=== PATIENT | male | born 1990 | race Caucasian/White ===

== ENCOUNTER 2019-01-01 13:48 | Emergency (ER) | payer MEDICAID, SELFPAY ==
[2019-01-01] VITALS (10 sets, daily range): BP systolic 135–150; BP diastolic 97–103; PULSE 112–124; RESP 17–20; TEMP 36.9; O2SAT 95–96; BMI 42.5
--- NOTE | 2019-01-01 14:04 | RAD_ITS ---
STUDY: X-RAY CHEST REASON FOR EXAM: Male, 28 years old. Chest pain. TECHNIQUE: Single AP portable view of the chest. COMPARISON: Comparison is made with prior study dated February 24, 2017. FINDINGS: Mild degree of vascular congestion. A stimulator device is seen overlying the lateral aspect of the left hemithorax. There is no demonstrated pleural abnormality. Normal size heart. Normal mediastinum and meenakshi. Normal visualized pulmonary arteries. Normal visualized aortic arch and descending thoracic aorta. Normal visualized thoracic spine. Normal visualized ribs, clavicles, and shoulders. There is no demonstrated abnormality of the visualized soft tissue structures of the upper abdomen. RAD/Chest 1 View (Portable) IMPRESSION: Mild degree of vascular congestion. Electronically Signed: Stuart Ontiveros, at 14:47 EDT , Service support ,
--- NOTE | 2019-01-01 14:04 | EKG12_ITS ---
Test Reason : MENTAL HEALTH Blood Pressure : / mmHG Vent. Rate : 115 BPM Atrial Rate : 115 BPM P-R Int : 168 ms QRS Dur : 082 ms QT Int : 312 ms P-R-T Axes : 055 071 042 degrees QTc Int : 431 ms Sinus tachycardia Otherwise normal ECG Confirmed by IVETTE SANCHES, ANGELITO ([id number]), editor sound ANA MARIA SANTIAGO ([id number]) on 01/05/2019 1:11:14 PM Referred By: SABRINA Confirmed By:ANGELITO STEELE MD
[2019-01-01 14:45] LABS: Absolute Lymphocyte Count 2.44 X10^3/ul (0.83-4.51); Absolute Neutrophil Count 5.7 X10^3/uL (2.0-7.7); Basophil# 0.04 X10^3/uL; Basophil% 0.5 % (0-1); Eosinophil# 0.28 X10^3/uL; Eosinophils% 3.2 % (0-5); Hematocrit 48.9 % (40-54); Hemoglobin 16.9 g/dl (13.0-16.5); Lymphocyte # 2.44 X10^3/ul (4.0); Lymphocyte % 27.7 % (19-41); Mean Corp Hgb Conc 34.6 g/gl (32-36); Mean Corpuscular Hgb 30.1 pg (27.0-32.0); Mean Corpuscular Volume 87.2 fL (80-94); Mean Platelet Vol. 11.4 fl (6.2-12.0); Monocyte# 0.35 X10^3/uL; Neutrophil # 5.69 X10^3/uL (2.7-7.7); Neutrophil % 64.5 % (47-70); Platelet Count 233 K/mm3 (150-450); RBC Distribution Width CV 12.9 % (11.6-14.6); Red Blood Count 5.61 M/mm3 (4.6-6.2); White Blood Count 8.8 K/mm3 (4.4-11.0)
[2019-01-01 14:49] LABS: POSITIVE COUNT NO; POSITIVE DIFFERENTIAL NO; POSITIVE MORPHOLOGY NO
[2019-01-01 15:03] LABS: Amphetamine Urine VISTA NEGATIVE (<1000 ng/mL); Barbiturate Urine VISTA NEGATIVE (< 200 ng/mL); Benzodiazepine Urine VISTA NEGATIVE (< 200 ng/mL); Cocaine Urine VISTA NEGATIVE (< 300 ng/mL); Ecstacy Urine VISTA NEGATIVE (< 500 ng/mL); Methadone Urine VISTA NEGATIVE (< 300 ng/mL); PCP Urine VISTA NEGATIVE (< 25 ng/mL); THC Urine VISTA NEGATIVE (< 50 ng/mL); Vista UDS pH Range 5
[2019-01-01 15:05] LABS: ALB/GLOB Ratio 0.8 RATIO (0.9-2.4); AST(SGOT) 14 U/L (15-37); Alanine Aminotransfer ALT/SGPT 43 U/L (16-61); Albumin, Serum 3.7 g/dL (3.2-5.0); Alkaline Phosphatase 119 U/L (45-117); Anion Gap 9 (5-15); BUN 10 mg/dL (7-18); BUN/Creat Ratio 11.8 RATIO (10-20); Chloride 111 mmol/L (98-107); Creatinine, Serum 0.85 mg/dL (0.70-1.30); EST Glomerular Filtration Rate 115 mL/min (>60); Est Glom Filt Rate - Afr Amer 139 mL/min (>60); Estimated Creatinine Clearance 127.41 ml/min; Globulin 4.4 g/dL (2.2-4.2); Glucose 111 mg/dL (74-106); Potassium 3.2 mmol/L (3.5-5.1); Protein, Total 8.1 g/dL (6.4-8.2); Sodium Level 142 mmol/L (136-145)
--- NOTE | 2019-01-01 15:28 | ED.VISSUMM ---
- ER Visit Summary Date of Service: 01/01/19 Chief Complaint: Paranoia History of Present Illness: The patient is a 28 M who has a long-standing seizure and schizophrenic history. Patient dad accompanies him to the emergency department. They were assessed by crisis in the outpatient setting. They were advised to come to the emergency department. Approximately 1 month ago the patient had his psychiatric medications increased. This was not tolerated well and eventually were weaned off and changed. However the patient has not achieved his baseline mental health status. Dad notes increased paranoia which the patient agrees with. Patient has auditory hallucinations of 2 voices telling him very bad things. He states that he has not have any suicidal ideation but has been aggressive and irritable towards other people. Physical Examination: Afebrile vital signs stable Gen: Well-nourished well-developed Head: Normocephalic atraumatic Eyes: Perrl EOMI ENT: TMs clear no rhinorrhea moist mucous membranes Neck: Supple no lymphadenopathy no JVD nontender CVS: Regular rate rhythm no murmurs normal S1-S2 Respiratory: No distress clear to auscultation bilaterally chest nontender Abdomen: Soft nontender nondistended normal bowel sounds no masses Back: Nontender Extremity: Nontender no edema Skin: Normal color no rash Neuro: alert orientated ?3 CN II-XII intact normal strength sensation reflexes gait cerebellar Psych: Blunted affect. Patient appears internally stimulated. He admits to auditory hallucinations. He denies suicidal ideation. Test Results: Psychiatric screening labs were obtained which showed a potassium 3.2. Emergency Department Course and Treatment: Patient received oral potassium. Patient will be assessed by crisis and is cleared for psychiatric evaluation. Impression: 1. Decompensated schizophrenia 2. Hypokalemia This note was generated with [employer] dictation software. It may contain incorrect words, spelling, and punctuation that were not noted in review of the chart prior to signing ED Disposition - Plan for ED Patient: Referrals: Gus Fletcher MD [Primary Care Provider] -
--- NOTE | 2019-01-01 15:32 | ED.RN ---
TALKED TO DUSTIN AT THE [facility] AND HE IS WORKING ON THE SITUATION WITH THIS PATIENT FROM THE OFFICE. SOMEONE WILL BE OVER SHORTLY. BU NO DEFINITE ETA.
--- NOTE | 2019-01-01 21:54 | NURSING ---
TERE PHONE NUMBER [phone]
[2019-01-02] VITALS (8 sets, daily range): BP systolic 121–129; BP diastolic 83–92; PULSE 80–94; RESP 14–18; TEMP 36.6; O2SAT 95–98
--- NOTE | 2019-01-02 00:03 | NURSING ---
IGNACIO FROM CRISIS CALLED SAYING PATIENT WAS DECLINED FROM [facility] AND WILL NOW PUT IN A REFERAL TO [facility].
[2019-01-02] MEDS: MELATONIN 10 MG TABLET PO (00:21)
--- NOTE | 2019-01-02 01:09 | ED.RN ---
PT STATES I HAVE BEEN OFF PROBATION A YEAR OR TWO
[2019-01-02 01:19] LABS: Red Blood Cells-Urine 0 SEEN /hpf (0-5)
[2019-01-02 01:33] LABS: Potassium 3.8 mmol/L (3.5-5.1)
[2019-01-02 01:44] LABS: AST(SGOT) 20 U/L (15-37); Alanine Aminotransfer ALT/SGPT 45 U/L (16-61); Albumin, Serum 3.5 g/dL (3.2-5.0); Alkaline Phosphatase 109 U/L (45-117); Bilirubin, Direct 0.11 mg/dL (0.00-0.30); Globulin 3.9 g/dL (2.2-4.2); Protein, Total 7.4 g/dL (6.4-8.2)
[2019-01-02 02:20] LABS: Color, Urine Yellow (Yellow); Glucose, Dipstick Normal (Normal); Ketone-Dipstick Negative (Negative); Leukocyte Esterase-Dipstick 25 /ul (Negative); Nitrite-Dipstick Negative (Negative); Occult Blood-Urine Negative /ul (Negative); Protein-Dipstick 15 mg/dl (Negative); Urine Bilirubin Dipstick Negative (Negative); Urine Clarity Cloudy (Clear); Urine Urobilinogen Normal (Normal)
[2019-01-02 02:25] LABS: Amorphous Sediment 1+; Bacteria 2+ /hpf (None Seen); Mucous, Urine 3+ /hpf (<or=2+); White Blood Cells 0-5 SEEN /hpf (0-5)
[2019-01-02 02:26] LABS: Squamous Epithelial Cells - UA 0-5 SEEN /hpf (0-5)
[2019-01-02] MEDS: Pantoprazole Sodium 20 MG Tablet PO (06:49)
[2019-01-02] MEDS: Zonisamide 50 MG Capsule 200 MG PO (06:50)
[2019-01-02] MEDS: Lacosamide 100 MG Tablet 300 MG PO (06:51)
== END 2019-01-02 09:28 ==
PROVIDERS: Emergency Medicine; Emergency Provider Emergency Medicine; Family Provider Family Medicine; PCP Family Medicine
DX: F20.9 Schizophrenia, unspecified (principal); E87.6 Hypokalemia; G40.909 Epilepsy, unspecified, not intractable, without status epilepticus; Z79.899 Other long term (current) drug therapy; F17.200 Nicotine dependence, unspecified, uncomplicated
CPT/HCPCS: 71045; 80053; 80076; 80307; 80320; 81001; 84132; 84484; 85025; 93005; 99285; G0480

== ENCOUNTER 2019-02-24 13:19 | Emergency (ER) | payer MEDICAID, SELFPAY ==
[2019-01-01 13:49] VITALS: BMI 42.5
[2019-02-24 13:20] VITALS: BP 122/81; PULSE 124; RESP 16; TEMP 36.3; O2SAT 94; BMI 41.8
[2019-02-24 13:33] VITALS: BP 139/94; PULSE 108; RESP 16; O2SAT 97
--- NOTE | 2019-02-24 13:34 | CT_ITS ---
STUDY: CT BRAIN WITHOUT CONTRAST REASON FOR EXAM: Male, 29 years old. Seizure, left-sided numbness RADIATION DOSAGE (If Supplied By Facility): CTDIvol = ( 44.99 ) mGy, DLP = ( 812.98 ) mGycm TECHNIQUE: Transaxial CT imaging of the brain was performed without administration of intravenous contrast material. Individualized dose optimization techniques were used for this CT. COMPARISON: 2015 FINDINGS: Stable appearing right frontal craniotomy defect with postoperative changes in the right cerebral hemisphere. There is extensive encephalomalacia and negative mass effect with slight midline shift from left to right due to the extensive encephalomalacia in the right cerebral hemisphere. Previously noted areas of hemorrhage within the right cerebral hemisphere and pneumocephalus have resolved since the previous study. No acute hemorrhage noted on today's examination. CT/Brain/Head without Contrast IMPRESSION: Significant postsurgical changes noted in the right cranium and right cerebral hemisphere with encephalomalacia and negative mass effect. No acute hemorrhage or acute finding noted. Electronically Signed: Brent Emerson MD at 14:21 EDT , Service support ,
[2019-02-24 14:03] LABS: Amphetamine Urine VISTA NEGATIVE (<1000 ng/mL); Barbiturate Urine VISTA NEGATIVE (< 200 ng/mL); Benzodiazepine Urine VISTA NEGATIVE (< 200 ng/mL); Cocaine Urine VISTA NEGATIVE (< 300 ng/mL); Ecstacy Urine VISTA NEGATIVE (< 500 ng/mL); Methadone Urine VISTA NEGATIVE (< 300 ng/mL); PCP Urine VISTA NEGATIVE (< 25 ng/mL); THC Urine VISTA NEGATIVE (< 50 ng/mL); Vista UDS pH Range 7
[2019-02-24 14:07] LABS: Absolute Lymphocyte Count 2.41 X10^3/uL (0.83-4.51); Absolute Neutrophil Count 8.6 X10^3/uL (2.0-7.7); Basophil# 0.05 X10^3/uL; Basophil% 0.4 % (0-1); Eosinophil# 0.29 X10^3/uL; Eosinophils% 2.4 % (0-5); Hematocrit 49.9 % (40-54); Hemoglobin 17.5 g/dL (13.0-16.5); Lymphocyte # 2.41 X10^3/ul (4.0); Mean Corp Hgb Conc 35.1 g/dL (32-36); Mean Corpuscular Hgb 31.5 pg (27.0-32.0); Mean Corpuscular Volume 89.7 fL (80-94); Mean Platelet Vol. 11.4 fl (6.2-12.0); Monocyte# 0.67 X10^3/uL; Monocyte% 5.6 % (0-10); NRBC Flagged by Analyzer 0 % (0-5); Neutrophil # 8.59 X10^3/uL (2.7-7.7); Neutrophil % 71.3 % (47-70); Platelet Count 194 K/mm3 (150-450); RBC Distribution Width CV 13.5 % (11.6-14.6); RBC Distribution Width SD 44.2 fl (35.1-43.9); Red Blood Count 5.56 M/mm3 (4.6-6.2); White Blood Count 12.1 K/mm3 (4.4-11.0)
[2019-02-24 14:21] LABS: Anion Gap 7 (5-15); BUN 11 mg/dL (7-18); Calcium,Total 9.1 mg/dL (8.5-10.1); Chloride 107 mmol/L (98-107); Creatinine, Serum 0.84 mg/dL (0.70-1.30); EST Glomerular Filtration Rate 116 mL/min (>60); Est Glom Filt Rate - Afr Amer 140 mL/min (>60); Glucose 102 mg/dL (74-106); Potassium 3.6 mmol/L (3.5-5.1); Sodium Level 138 mmol/L (136-145)
[2019-02-24 14:27] LABS: Alcohol, Blood (Medical)-Serum < 3.0 mg/dL
--- NOTE | 2019-02-24 15:18 | NURSING ---
PAGED DR DEVON SEPULVEDA. TALKED TO [place] OFFICE NUMBER IS [phone]
--- NOTE | 2019-02-24 15:27 | ED.VISSUMM ---
- ER Visit Summary Date of Service: 02/24/19 Chief Complaint: Seizure, left-sided numbness History of Present Illness: The patient is a 29 M who complains of having a seizure a couple of days ago and now has numbness on his left hand side. He states he had a full tonic-clonic seizure a couple of days ago. After this, he had disturbances of sensation on the left-hand side only. He denies having any weakness other than his baseline. He has had intermittent headaches as well. He denies any nausea or vomiting. He has been compliant with his antiseizure medications. After seeing his CAT scan, I can see that he has had a craniectomy previously. Physical Examination: Vital signs reviewed. HEENT exam unremarkable. Heart is regular rate and rhythm without murmurs. Lungs are clear to auscultation. Abdomen is soft and nontender. Extremities reveal no edema. Skin exam normal. Neurologic exam shows some numbness and decreased sensation on the left-hand side of his face, arm and leg. NIH is 1 Test Results: Laboratory studies are unremarkable including tox and alcohol. CAT scan of the head reveals postsurgical changes with a large amount of encephalomalacia. This is unchanged from his previous CAT scan. Emergency Department Course and Treatment: I talked with the patient's neurologist at the [facility], Dr. Gtz. She believes this is likely a prolonged postictal. Since he has not had a seizure in over 3 years. She would recommend a couple more days of observation at home. If his symptoms are not better by the end of this week she will order an outpatient MRI. Patient is comfortable with this plan will continue his home medications Treatment Plan: [] Disposition: Discharge Impression: Left-sided numbness, seizure This note was generated with [employer] software. It may contain incorrect words, spelling, and punctuation that were not noted in review of the chart prior to signing ED Disposition - Plan for ED Patient: Referrals: Gus Fletcher MD [Primary Care Provider] -
--- NOTE | 2019-02-24 15:29 | NURSING ---
CALLED DR RANDHAWA'S OFFICE. [phone] CALLED BACK
--- NOTE | 2019-02-24 15:44 | ED.DEP ---
ED Disposition - Plan for ED Patient: Disposition: Home or Assisted Living Instructions: SEIZURE, Recurrent [Adult] Referrals: Gus Fletcher MD [Primary Care Provider] -
[2019-02-24 15:54] VITALS: BP 148/69; PULSE 72; RESP 16; O2SAT 96
[2019-02-24 15:58] VITALS: BP 143/80; PULSE 93; RESP 15; O2SAT 99
--- NOTE | 2019-02-24 15:59 | ED.RN ---
THIS NURSE REVIEWED D/C INSTRUCTIONS WITH PT AND VISITOR. PT VERBALIZED UNDERSTANDING OF INSTRUCTIONS. IV D/C. IV CATHETER INTACT. PT TOLERATED WELL. PT DENIES FURTHER NEEDS OR QUESTIONS AT THIS TIME.
== END 2019-02-24 16:00 | disposition home or self-care (01) ==
PROVIDERS: Emergency Provider Emergency Medicine; Family Provider Family Medicine; PCP Family Medicine
DX: G40.909 Epilepsy, unspecified, not intractable, without status epilepticus (principal); R20.0 Anesthesia of skin; K21.9 Gastro-esophageal reflux disease without esophagitis; Z79.899 Other long term (current) drug therapy; Z72.0 Tobacco use
CPT/HCPCS: 70450; 80048; 80307; 80320; 85025; 99283; A4216; G0480

== ENCOUNTER 2019-03-18 12:29 | Emergency (ER) | payer MEDICAID, SELFPAY ==
[2019-03-18 12:31] VITALS: BP 141/80; PULSE 120; RESP 16; TEMP 36.6; O2SAT 95; BMI 40.6
[2019-03-18 13:18] LABS: Bacteria 0 SEEN /hpf (None Seen); Mucous, Urine 0 SEEN /hpf (<or=2+); Red Blood Cells-Urine 0 SEEN /hpf (0-5); Squamous Epithelial Cells - UA 0 SEEN /hpf (0-5); White Blood Cells 0 SEEN /hpf (0-5)
[2019-03-18 13:20] LABS: Absolute Lymphocyte Count 1.92 X10^3/uL (0.83-4.51); Absolute Neutrophil Count 8.5 X10^3/uL (2.0-7.7); Basophil# 0.06 X10^3/uL; Basophil% 0.5 % (0-1); Eosinophil# 0.25 X10^3/uL; Eosinophils% 2.2 % (0-5); Hematocrit 50.6 % (40-54); Hemoglobin 17.4 g/dL (13.0-16.5); Lymphocyte # 1.92 X10^3/ul (4.0); Lymphocyte % 16.9 % (19-41); Mean Corp Hgb Conc 34.4 g/dL (32-36); Mean Corpuscular Hgb 31.2 pg (27.0-32.0); Mean Corpuscular Volume 90.8 fL (80-94); Mean Platelet Vol. 11.5 fl (6.2-12.0); Monocyte# 0.55 X10^3/uL; Monocyte% 4.8 % (0-10); NRBC Flagged by Analyzer 0 % (0-5); Neutrophil # 8.53 X10^3/uL (2.7-7.7); Neutrophil % 75.2 % (47-70); Platelet Count 200 K/mm3 (150-450); RBC Distribution Width CV 13.3 % (11.6-14.6); RBC Distribution Width SD 44.8 fl (35.1-43.9); Red Blood Count 5.57 M/mm3 (4.6-6.2); White Blood Count 11.4 K/mm3 (4.4-11.0)
[2019-03-18 13:22] LABS: Color, Urine Yellow (Yellow); Glucose, Dipstick Normal (Normal); Ketone-Dipstick Negative (Negative); Leukocyte Esterase-Dipstick Negative /ul (Negative); Nitrite-Dipstick Negative (Negative); Occult Blood-Urine Negative /ul (Negative); Protein-Dipstick Negative (Negative); Urine Bilirubin Dipstick Negative (Negative); Urine Clarity Clear (Clear); Urine Urobilinogen Normal (Normal); Urine pH 6.5 (5.0 - 8.0)
[2019-03-18 13:33] LABS: Anion Gap 6 (5-15); BUN 7 mg/dL (7-18); Calcium,Total 8.9 mg/dL (8.5-10.1); Chloride 107 mmol/L (98-107); Creatinine, Serum 0.88 mg/dL (0.70-1.30); EST Glomerular Filtration Rate 111 mL/min (>60); Est Glom Filt Rate - Afr Amer 134 mL/min (>60); Estimated Creatinine Clearance 126.09 ml/min; Glucose 92 mg/dL (74-106); Potassium 3.6 mmol/L (3.5-5.1); Sodium Level 140 mmol/L (136-145)
--- NOTE | 2019-03-18 14:27 | ED.VISSUMM ---
- ER Visit Summary Date of Service: 03/18/19 Chief Complaint: Kidneys hurt History of Present Illness: The patient is a 29 M with bilateral flank pain. Symptoms have been going on for 3 weeks. He also reports occasional burning with urination and hesitancy. Denies any fevers or other associated symptoms. He has occasional tailbone pain but denies any history of prostate problems. Physical Examination: Afebrile and vital signs unremarkable except heart rate 120. Patient appears in no acute distress. Cardiac exam is regular. Lungs are clear. Abdomen is soft and nontender. Back is nontender. Skin appears normal. Test Results: White count 11.4 and hemoglobin 17.4. Chemistry panel normal. Urinalysis normal. Cultures pending. Emergency Department Course and Treatment: Patient has bilateral back pain. Possible UTI. His symptoms are not consistent with kidney stone. His work-up however was unremarkable. No bleeding. No sign of infection. Normal kidney function. Patient may have myofascial pain. He will use [id number] remedies and follow-up with his doctor. Return for any new or worsening issues. Treatment Plan: As above Disposition: Discharge Impression: 1. Bilateral flank pain This note was generated with [employer] dictation software. It may contain incorrect words, spelling, and punctuation that were not noted in review of the chart prior to signing ED Disposition - Plan for ED Patient: Referrals: Gus Fletcher MD [Primary Care Provider] -
--- NOTE | 2019-03-18 14:29 | ED.DEP ---
ED Disposition - Plan for ED Patient: Instructions: FLANK PAIN, Uncertain Cause Referrals: Gus Fletcher MD [Primary Care Provider] -
[2019-03-18 14:37] VITALS: BP 127/92; PULSE 107; RESP 17; O2SAT 96
== END 2019-03-18 14:41 | disposition home or self-care (01) ==
LOC: ED 13:08
PROVIDERS: Emergency Provider Emergency Medicine; Family Provider Family Medicine; PCP Family Medicine
DX: R10.9 Unspecified abdominal pain (principal); M54.9 Dorsalgia, unspecified; R30.0 Dysuria; R39.11 Hesitancy of micturition; G40.909 Epilepsy, unspecified, not intractable, without status epilepticus; Z79.899 Other long term (current) drug therapy; Z72.0 Tobacco use
CPT/HCPCS: 80048; 81001; 85025; 87086; 99283; A4216

== ENCOUNTER 2019-05-10 07:37 | Emergency (ER) | payer MEDICAID, SELFPAY ==
[2019-05-10 07:38] VITALS: BP 136/91; PULSE 108; RESP 18; TEMP 36.6; O2SAT 97; BMI 43.3
--- NOTE | 2019-05-10 08:02 | ED.VIS.GEN ---
History of Present Illness Chief Complaint: Wound Check Informant: Patient, Family Onset: Month(s) Current Severity: Mild Narrative: The patient presents with the father he is complaining of pain involving the upper right tooth directly next to the central incisor this tooth has had prior dental work including it has a He has some discomfort related to this tooth that appears to be radiating to the palate maxillary area for 1 month there is been no fever no cough no drainage he is scheduled to see a dentist in a few days the father brought him to the emergency department for evaluation as he was concerned that something developed on the gum adjacent to this tooth Past Medical History - Allergies and Home Meds Allergies/Adverse Reactions: Allergies No Known Allergies Allergy (Verified 05/10/19 07:40) Primary Care Physician: Gus Fletcher MD [Primary Care Provider] - Past Medical History: - - Includes as above he does smoke Smoking Status: Heavy Smoker (>10/day) Review of Systems General: Denies: Chills, Fever, Sweats Eyes: Denies: Visual changes - bilaterally, Diplopia ENT: Denies: Rhinorrhea, Sore throat Cardiovascular: Denies: Chest pain, Palpitations Respiratory: Denies: Dyspnea, Cough, Dyspnea on exertion Gastrointestinal: Denies: Abdominal pain, Nausea, Vomiting, Diarrhea, Melena, Hematochezia Genitourinary: Denies: Dysuria, Hematuria, Frequency Musculoskeletal: Denies: Back pain, Extremity Pain Skin: Denies: Rash, Wounds Neurological: Denies: Headache, Weakness, Numbness Physical Exam Vital Signs/Narrative: Vital Signs Temp Pulse Resp BP Pulse Ox 05/10/19 07:38 98 F 108 H 18 136/91 H 97 General: Well nourished, Well developed, No Acute Distress Head: Normocephalic, Atraumatic Eyes: Perrl, EOMI ENT: Moist mucous membranes, No rhinorrhea, - - Very minimal pain with palpation of this tooth to tooth is in good position the palate the maxilla of the gumline the floor the mouth the tongue oral cavity and general completely unremarkable the father is concerned that there is some type of discoloration to the gum adjacent to this tooth and there is certainly could be something very tiny but there is nothing remarkable there is no blistering there is no skin breakdown, the father is concerned this could represent some type of an oral cancer Neck: Supple, Nontender Cardiovascular: Regular rate, Regular rhythm, No murmurs Respiratory: No distress, CTA bilaterally, Chest nontender Abdomen: Soft, Nontender, Nondistended, Normal bowel sounds Back: Nontender, Normal Inspection Extremities: Nontender, No edema Skin: Normal color, No rash Neurological: Alert, Oriented x3, Cranial nerves II-XII grossly intact, Normal Strength, Normal Sensation Psychological: Normal affect, Normal Mood Diagnostic/Tx/Re-eval - Medical Decision Making I have explained all of the above to the father I explained his concerns of the oral cancer are certainly are valid given the long history of smoking, this cannot be further evaluated through the emergency department at this time there does not appear to be anything acute or life-threatening he is scheduled to see his dentist in a day or 2 he will keep that appointment to be evaluated for further life-threatening conditions, will be started on Pen-Vee K in case this is not some type of occult dental infection and to follow-up with all the outpatient providers for further management of all the above Home stable Impression final Dental pain ED Disposition - Plan for ED Patient: Diagnosis: Pain, dental Instructions: Dental Pain Prescriptions: Penicillin Vk [Pen-Vee K 250MG] 500 mg PO 4X/DAY #40 tab Prescription Printed Referrals: Gus Fletcher MD [Primary Care Provider] -
== END 2019-05-10 08:25 | disposition home or self-care (01) ==
PROVIDERS: Emergency Provider Emergency Medicine; Family Provider Family Medicine; PCP Family Medicine
DX: K08.89 Other specified disorders of teeth and supporting structures (principal); F17.200 Nicotine dependence, unspecified, uncomplicated
CPT/HCPCS: 99281

== ENCOUNTER 2020-12-20 13:59 | Emergency (ER) | payer MEDICAID, SELFPAY ==
[2020-12-20 14:00] VITALS: BP 124/101; PULSE 131; RESP 15; TEMP 36.2; O2SAT 96; BMI 42.5
--- NOTE | 2020-12-20 14:19 | EKG12_ITS ---
Test Reason : [facility] [place] Blood Pressure : / mmHG Vent. Rate : 121 BPM Atrial Rate : 121 BPM P-R Int : 156 ms QRS Dur : 082 ms QT Int : 296 ms P-R-T Axes : 059 061 052 degrees QTc Int : 420 ms Sinus tachycardia Otherwise normal ECG Confirmed by KRISTINE SANCHES, TIFFANY ([id number]), video effects editor BIN MURILLO ([id number]) on 12/23/2020 11:26:44 A M Referred By: SLIM Confirmed By:TAE CARMONA MD
[2020-12-20 15:09] LABS: Basophil# 0.06 X10^3/uL; Basophil% 0.6 % (0-1); Eosinophil# 0.27 X10^3/uL; Eosinophils% 2.6 % (0-5); Hematocrit 52.7 % (40-54); Lymphocyte % 20.8 % (19-41); Mean Corp Hgb Conc 34.5 g/dL (32-36); Mean Corpuscular Hgb 31.7 pg (27.0-32.0); Mean Corpuscular Volume 91.7 fL (80-94); Mean Platelet Vol. 11.2 fl (6.2-12.0); Monocyte% 9.5 % (0-10); NRBC Flagged by Analyzer 0 % (0-5); Neutrophil # 7.01 X10^3/uL (2.7-7.7); Neutrophil % 66.2 % (47-70); Platelet Count 259 K/mm3 (150-450); RBC Distribution Width CV 13.7 % (11.6-14.6); RBC Distribution Width SD 46.1 fl (35.1-43.9); Red Blood Count 5.75 M/mm3 (4.6-6.2); White Blood Count 10.6 K/mm3 (4.4-11.0)
[2020-12-20 15:19] LABS: Bacteria 0 SEEN /hpf (None Seen); Mucous, Urine 0 SEEN /hpf (<or=2+); Red Blood Cells-Urine 0 SEEN /hpf (0-5); Squamous Epithelial Cells - UA 0 SEEN /hpf (0-5); White Blood Cells 0 SEEN /hpf (0-5)
[2020-12-20 15:21] LABS: AST(SGOT) 19 U/L (15-37); Alanine Aminotransfer ALT/SGPT 41 U/L (16-61); Alkaline Phosphatase 98 U/L (45-117); Anion Gap 6 (5-15); BUN 8 mg/dL (7-18); BUN/Creat Ratio 9.4 RATIO (10-20); Calcium,Total 9.1 mg/dL (8.5-10.1); Chloride 106 mmol/L (98-107); Creatinine, Serum 0.85 mg/dL (0.70-1.30); EST Glomerular Filtration Rate 113 mL/min (>60); Est Glom Filt Rate - Afr Amer 137 mL/min (>60); Estimated Creatinine Clearance 125.18 ml/min; Globulin 3.9 g/dL (2.2-4.2); Glucose 113 mg/dL (74-106); Potassium 3.5 mmol/L (3.5-5.1); Protein, Total 7.9 g/dL (6.4-8.2); Sodium Level 138 mmol/L (136-145); Thyroid Stim Hormone (TSH) 0.49 uIU/mL (0.358-3.74)
[2020-12-20 15:23] LABS: Alcohol, Blood (Medical)-Serum < 3.0 mg/dL
[2020-12-20 15:26] LABS: Color, Urine Yellow (Yellow); Glucose, Dipstick Normal (Normal); Ketone-Dipstick Negative (Negative); Leukocyte Esterase-Dipstick Negative /ul (Negative); Nitrite-Dipstick Negative (Negative); Occult Blood-Urine Negative /ul (Negative); Protein-Dipstick Negative (Negative); Urine Bilirubin Dipstick Negative (Negative); Urine Clarity Clear (Clear); Urine Urobilinogen Normal (Normal); Urine pH 6.5 (5.0 - 8.0)
[2020-12-20 15:33] LABS: Hemoglobin 18.2 g/dL (13.0-16.5)
[2020-12-20 15:53] LABS: Amphetamine Urine VISTA NEGATIVE (<1000 ng/mL); Barbiturate Urine VISTA NEGATIVE (< 200 ng/mL); Benzodiazepine Urine VISTA NEGATIVE (< 200 ng/mL); Cocaine Urine VISTA NEGATIVE (< 300 ng/mL); Ecstacy Urine VISTA NEGATIVE (< 500 ng/mL); Methadone Urine VISTA NEGATIVE (< 300 ng/mL); PCP Urine VISTA NEGATIVE (< 25 ng/mL); THC Urine VISTA NEGATIVE (< 50 ng/mL); Vista UDS pH Range 5
--- NOTE | 2020-12-20 16:49 | EDS_ITS ---
HPI HPI - Psych History of Present Illness Chief Complaint: Mental Health Informant: patient and parent Associated Symptoms Associated Symptoms - Psych: Positive for Paranoia; Negative for Suicidal Though ts, Visual Hallucinations and Auditory Hallucinations Narrative Narrative: Patient is a 30-year-old male with history of bipolar disorder and anxiety presenting with worsening paranoia. Patient had recent medication changes through the counseling center and is continued to have significant symptoms of paranoia. Patient apparently is fixated on his stimulus money being stolen. A lot of his paranoia seems to center around money. Patient has been compliant with his medications. The counseling center asked that he come to the emergency room to be medically evaluated to make sure there is not an organic cause of his worsening paranoia and then have medical clearance for further psychiatric management and medication adjustments. Patient is agreeable this plan of care. Patient denies any physical complaints at this time. [facility] Medical History Bipolar disorder Depression Schizophrenia Seizures Home Medications lacosamide [Vimpat] 300 mg PO BID 02/27/16 [History Last Taken 02/24/19] lorazepam 1 mg PO DAILY PRN PRN 02/27/16 [History Last Taken 02/24/19] zonisamide [Zonegran] 200 mg PO BID 02/27/16 [History Last Taken 02/24/19] acetaminophen [Tylenol] 325 mg PO Q6H PRN PRN 07/11/16 [History Last Taken 02/24/19] cariprazine [Vraylar] 3 mg PO DAILY 01/01/19 [History Last Taken 02/24/19] omeprazole 20 mg PO DAILY 01/01/19 [History Last Taken 02/24/19] cariprazine [Vraylar] 1.5 mg PO DAILY 12/20/20 [History Last Taken Unknown] duloxetine 30 mg PO DAILY 12/20/20 [History Last Taken Unknown] hydroxyzine HCl 50 mg PO BID PRN 12/20/20 [History Last Taken Unknown] lumateperone [Caplyta] 42 mg PO DAILY 12/20/20 [History Last Taken Unknown] Allergy/AdvReac Type Severity Reaction Status Date / Time INCREZZA Allergy Hives Uncoded 12/20/20 14:04 Surgical History H/O brain surgery S/P placement of VNS (vagus nerve stimulation) device Social History Smoking Status: Heavy Smoker (>10/day) ROS ROS ED Constitutional Constitutional ED: Denies chills, fever(s) or malaise Eyes Eyes: Denies blurry vision or loss of vision ENT ENT ED: Denies rhinorrhea or sore throat Cardiovascular Cardiovascular: Denies chest pain or dizziness Respiratory/Chest Respiratory/Chest: Denies cough or dyspnea Gastrointestinal Gastrointestinal: Denies nausea or vomiting Genitourinary Genitourinary ED: Denies dysuria or hematuria Musculoskeletal Musculoskeletal: Denies arthralgias or myalgias Integumentary Denies rash or wounds Neurologic Neurologic: Denies focal weakness or headache(s) Psychiatric Psychiatric: Reports other Details: Paranoia ; Denies anxiety, behavioral changes, suicidal ideation or suicidal thoughts EXAM Physical Exam Const Vital Signs: 12/20/20 14:00 12/20/20 17:09 Temperature 97.2 F L Temperature Source Temporal Pulse Rate 131 H Respiratory Rate 15 16 Blood Pressure 124/101 H Blood Pressure Mean 108 Pulse Ox 96 Oxygen Delivery Method Room Air Positive well nourished, well developed and no apparent distress General Appearance ED: well developed HEENT Reports normocephalic atraumatic Nose: no nasal discharge General Ear: hearing grossly impaired External Ear: external ears normal Mouth ED: Yes moist mucous membranes abnormal Mouth: moist mucous membranes abnormal Eyes PERRL and EOMs intact bilaterally Neck full ROM, no lymphadenopathy, supple and no meningeal signs Chest Wall inspection of chest normal Resp normal respiratory effort and normal air movement Cardio regular rate, regular rhythm and no murmurs Cardio Narrative: Tachycardic GI normal to inspection, nondistended, normoactive bowel sounds and non-tender Palpation: soft Extremity normal to inspection and full ROM Neuro oriented x3 and no focal motor deficits Sensorium / Orientation: alert Psych mental status grossly normal and cooperative Thought Content: No hallucination(s) and other Patient appears to be fixated on his stimulus money and that it was stolen Skin no rashes or lesions noted and no wounds MDM MDM MDM Narrative Medical decision making narrative: Patient is evaluated for persistent paranoia. He has multiple psychiatric diagnoses. He appears nontoxic in no acute distress. He is cooperative. I do think he would benefit from inpatient psychiatric care for further medication adjustments. Patient and family are agreeable this plan of care. Patient is medically cleared. Patient is given a dose of Tylenol and oral Ativan in the ER for anxiety/back pain Patient signed out pending final disposition. Lab Data Attestation: I reviewed the patient's lab results. Labs: Laboratory Results - last 24 hr 12/20/20 12/20/20 12/20/20 14:46 14:56 14:56 WBC 10.6 RBC 5.75 Hgb 18.2 H* Hct 52.7 MCV 91.7 MCH 31.7 MCHC 34.5 RDW Std Deviation 46.1 H RDW Coeff of Abhijeet 13.7 Plt Count 259 MPV 11.2 Immature Gran % (Auto) 0.300 Neut % (Auto) 66.2 Lymph % (Auto) 20.8 Schuyler % (Auto) 9.5 Eos % (Auto) 2.6 Baso % (Auto) 0.6 Absolute Neuts (auto) 7.0 Absolute Lymphs (auto) 2.20 Nucleated RBC % 0 Sodium 138 Potassium 3.5 Chloride 106 Carbon Dioxide 26.0 Anion Gap 6 BUN 8 Creatinine 0.85 Estim Creat Clear Calc 125.18 Est GFR (MDRD) Af Amer 137 Est GFR (MDRD) Non-Af 113 BUN/Creatinine Ratio 9.4 L Glucose 113 H Calcium 9.1 Total Bilirubin 0.30 AST 19 ALT 41 Alkaline Phosphatase 98 Total Protein 7.9 Albumin 4.0 Globulin 3.9 Albumin/Globulin Ratio 1.0 TSH 0.49 Urine Color Urine Clarity Urine pH Ur Specific [place] Urine Protein Urine Glucose (UA) Urine Ketones Urine Occult Blood Urine Nitrite Urine Bilirubin Urine Urobilinogen Ur Leukocyte Esterase Urine RBC Urine WBC Ur Squamous Epith Cells Urine Bacteria Urine Mucus Urine Opiates Screen Urine Methadone Screen Ur Barbiturates Screen Ur Phencyclidine Scrn Ur Amphetamines Screen U Methamphetamin-MDMA U Benzodiazepines Scrn Urine Cocaine Screen U Cannabinoids Screen Ur Drug Screen Comment Ethyl Alcohol < 3.0 12/20/20 12/20/20 15:10 15:10 WBC RBC Hgb Hct MCV MCH MCHC RDW Std Deviation RDW Coeff of Abhijeet Plt Count MPV Immature Gran % (Auto) Neut % (Auto) Lymph % (Auto) Schuyler % (Auto) Eos % (Auto) Baso % (Auto) Absolute Neuts (auto) Absolute Lymphs (auto) Nucleated RBC % Sodium Potassium Chloride Carbon Dioxide Anion Gap BUN Creatinine Estim Creat Clear Calc Est GFR (MDRD) Af Amer Est GFR (MDRD) Non-Af BUN/Creatinine Ratio Glucose Calcium Total Bilirubin AST ALT Alkaline Phosphatase Total Protein Albumin Globulin Albumin/Globulin Ratio TSH Urine Color Yellow Urine Clarity Clear Urine pH 6.5 Ur Specific [place] 1.010 Urine Protein Negative Urine Glucose (UA) Normal Urine Ketones Negative Urine Occult Blood Negative Urine Nitrite Negative Urine Bilirubin Negative Urine Urobilinogen Normal Ur Leukocyte Esterase Negative Urine RBC 0 SEEN Urine WBC 0 SEEN Ur Squamous Epith Cells 0 SEEN Urine Bacteria 0 SEEN Urine Mucus 0 SEEN Urine Opiates Screen NEGATIVE Urine Methadone Screen NEGATIVE Ur Barbiturates Screen NEGATIVE Ur Phencyclidine Scrn NEGATIVE Ur Amphetamines Screen NEGATIVE U Methamphetamin-MDMA NEGATIVE U Benzodiazepines Scrn NEGATIVE Urine Cocaine Screen NEGATIVE U Cannabinoids Screen NEGATIVE Ur Drug Screen Comment Ethyl Alcohol Rhythm Strip Rhythm Strip: Sinus Tach Rate: 121 Ectopy: None EKG Initial EKG: Attestation: I personally reviewed and interpreted this EKG as follows: Interpretation: Sinus Tachycardia Comments: Sinus tachycardia at a rate of 121 Normal axis Normal intervals Normal ST segments Discharge Plan Triage Chief Complaint: Mental Health ED Provider: Mary Skinner Dx/Rx/DC Orders Clinical Impression: Paranoia Prescriptions: No Action zonisamide [Zonegran] 100 MG capsule 200 mg PO BID RF: 0 lorazepam 1 MG tablet 1 mg PO DAILY PRN PRN (Reason: Anxiety) RF: 0 Vimpat 150 MG tablet 300 mg PO BID RF: 0 acetaminophen [Tylenol] 325 MG tablet 325 mg PO Q6H PRN PRN (Reason: Pain) RF: 0 omeprazole 20 MG capsule,delayed release(DR/EC) 20 mg PO DAILY RF: 0 Vraylar 3 mg capsule 3 mg PO DAILY RF: 0 hydroxyzine HCl 50 mg Tablet 50 mg PO BID PRN (Reason: Anxiety) RF: 0 duloxetine 30 mg Capsule,Delayed Release(Dr/Ec) 30 mg PO DAILY RF: 0 Vraylar 1.5 mg capsule 1.5 mg PO DAILY RF: 0 Caplyta 42 mg Capsule 42 mg PO DAILY RF: 0 Primary Care Provider: Gus Fletcher Referrals: Gus Fletcher MD [Primary Care Provider] -
--- NOTE | 2020-12-20 16:58 | CM.ED ---
SOCIAL WORK ASSESSMENT Referral Source: ?RN Reason for Consult: Patient sent to the ED for psychiatric and medical assessment. Per RN [facility] wants psychiatric hospitalization for medication evaluation and psychiatric stabilization. ? Patient was interviewed in a hospital room in the ED. Patient gave verbal consent for his father to remain in the interview during this assessment. ? Chief Compliant: Patient was asked why he is here, and he said ?suspicion?. Patient said that his paranoia has increased the last 2-3 months. Patient voiced he has hard time determine the difference between his paranoia and his paranoia. Patient said that when he had meeting with the psychiatrist today ?he was acting weird like he was yanking my change?. ? ? Marital/Social History: Patient is single. He reports a fianc??, Teashia, and stated they have been together for 8 years. He reports no wedding date set at this time. ? Living Situation: Patient resides in the basement. Mom and dad reside upstairs. Father reports guns are locked and secured, and patient has no access. Father reports that he monitors patient?s meds and states patient has ?never had an issue with them?. ? Support/Resources: Patient reports that his support is ?my friend, my men?s group, my family, my slide forming machine operator?. Patient said that he receives Medicaid. ? History: Patient was asked about history and he said, ?not that I know of?. Father reports no history. ? Education and Employment History: Patient graduated from [employer] in 2007. However, he finished his educational career at [employer] ([employer]abilities). Father reports that patient was unable to manage in school with his seizures and within the school setting. Patient had an IEP for issues with cognition and concentrating. Patient has had multiple jobs at [employer], [employer] and the [employer]. When asked his longest employment he said ?[employer] 3-5 years... maybe 8). Patient is currently not employed as he was having issues with his belief that coworkers were ?out to get him? per father. ? Father said that patient is generally functioning at a 13?15-year-old level and ?sometimes less?. ? Mental Health Treatment/History: Patient is currently seeing a psychiatrist, Sage Mcdonough at [facility]. Patient has most recently been at [facility] and per records that was 12/15/18. Patient had also been hospitalized at [facility] but that was in relation to seizure, which had occurred at that time. Father reports no more seizures since patient has had surgery. Patient sees Chase Barajas for counseling. Per father Mr. Barajas is their manufacturing lead and a licensed counselor. ? Father reports no family history of mental health. Father said that previously patient had seizures and now has no seizures but ?he has schizophrenia.? ? Triggers/Stressors: Patient was asked about triggers and he said, ?when he (referencing dad) tries to take over life? and ?when I get told to do stuff I don?t want to do?. Patient?s father voiced that ?big groups? are a trigger for patient. ? Father remarked that patient is paranoid. ? Coping Skills: Patient was asked about coping skills and patient said, ?I haven?t coped in a long time?. Patient said that smoking is a coping skill. Patient?s father said, ?we go through a lot of drive throughs instead of going to restaurants.? ? Father said, ?he thinks we are hiding his money and suspicious?. Patient said that he is suspicious and feels he should have more stimulus checks. Patient said that his dad is using the money on gas. ? ? Abuse Issues: Patient said ?not that I remember of? ? Substance Abuse History: Patient and father said no. ? Risk to Self/Others: Suicidal- Patient denies any current suicidal thoughts. Patient said that he had plans and attempted to kill himself at age 17 via a noose but hasn?t attempted suicide since. Homicidal- None ? Mental Status Exam: Orientation-: Patient said it is 2019, Report?s month is December and day of week is ?Saturday but I know it?s Saturday.? ? Memory- Impaired. Makes comments about work history being ?3-5? and then 8. ? Appearance/General Behavior: Wearing hospital gown. Multiple tattoos. Appears clean. Mood/Affect: Terse and dismissive. Patient said that his mood is ?good.? Communication Pattern: Responds to questions, does not initiate. Thought Process: Paranoid and appears to be preoccupied. Says he doesn?t like to be in a hospital. General Intellectual Functioning: Below average Judgment: Poor Insight: Poor ? Assessment: Patient reports that his mood is ?depressed? however, he has flat affect and no eye contact. Patient has an irritable edge. Patient reports no bereavement issues. Patient reports no anxiety. Patient reports traumatic stress and state, ?a little bit? and when asked what that was about, he said ?I don?t like the hospital?. Patient reports no anger or aggression. Patient reports no oppositional behavior, however he appeared to be irritable and agitated while in the room with his father. Patient denied any attention issues and said that he watches tv without any attention issues. Patient denied any psychosis. Patient denied any substance use. Patient reports he sleeps 7-8 hours at night and father said that patient has difficulty with falling asleep and then getting up during the night and then has difficulty with the resumption of sleep. Patient reported he has a ?hard time with sleep?. ? Plan: Patient is displaying decompensation of mental health. He displays no eye contact. He appears irritable and agitated. Patient voices that he has difficulty determining between paranoia and reality. Patient would benefit from inpatient hospitalization for medication management and review and to ensure patient?s safety and stability. ? Patient was advised of the need for inpatient treatment, and he was calm and given opportunity to ask questions and he said ?I like [facility] ?psych social worker explained that we want to look for treatment in [place]. Patient said, ?can I go out and burn one?? SW explained he cannot go outside and smoke. ? Father is supportive of inpatient psychiatric hospitalization. ? Sintia VASQUEZ
--- NOTE | 2020-12-20 17:02 | CM.ED ---
Addendum entered by Sintia Marsh 12/20/20 18:22: SCAR received phone call from [facility]. They declined. SCAR called [facility]. They have beds. SCAR made referral to [facility] and faxed information to them for review. SCAR updated patient and father about [place] and new referral to [facility]. They were in agreement with plan. Sintia Vasquez Original Note: SCAR Note SW spoke to patient's father outside the patient's room. He has a family member that had worked and spoke highly at [facility] in [place]. He would like [facility] to be pursued to inpatient psych hospitalization. SCAR called [facility] and spoke to Stella. Stella said to fax all paperwork to her [phone]. SCAR completed assessment and faxed all psych referral paperwork to her. SCAR updated patient and patient's father that patient needs stabilization and medication reevaluation from a psychiatric inpatient facility. Patient was calm but stated I like [place]. Explained we are looking for provider in [place]. Waiting call back from [facility]. Plan: Inpatient psychiatric hospitalization Sintia VASQUEZ
[2020-12-20] MEDS: Acetaminophen 500 MG Tablet 1000 MG PO (17:08)
[2020-12-20] MEDS: LORazepam 1 MG Tablet PO (17:08)
[2020-12-20 17:09] VITALS: RESP 16
[2020-12-20 18:05] VITALS: BP 146/98; PULSE 124; RESP 16; O2SAT 100
--- NOTE | 2020-12-20 20:27 | CM.ED ---
Addendum entered by Sintia Marsh 12/20/20 22:03: SCAR got message from ED patient care secretary. [facility] declined. SCAR called [facility] for list of other agencies that may take patient. SCAR called [facility]. They do not take medicaid for 24 and over. SCAR called [facility]. They do not take medicaid. SCAR called [facility]. They declined as they do not take medicaid. SCAR called [facility]. They declined as they stated that patient would need to be seen by an [facility]. SCAR called [facility] and made referral. Sent referral packet SCAR spoke to [facility] and updated her. SCAR updated informix developer and MD. SCAR received call from patient's father. He was provided an update. SCAR called father back and he advised he spoke to a friend who encouraged him to contact [facility] and speak to someone in customer service, [facility]. Father said that he would like [facility] again in the morning if there was no placement. SCAR encouraged patient's father to speak with [facility] in the morning. SCAR updated Sintia at [facility]. She was advised editorial writer is going home. She indicated she will take over on working on the placement. She was advised of father's desire to pursue [facility] and his desire to contact someone at that hospital. SCAR called Bonnie at [facility]. She has received referral but is working on another transfer. SCAR updated MD, informix developer and staff about [facility] taking over for placement. Sintia VASQUEZ Original Note: SCAR Note SW called [facility]. No update on status of patient. SCAR met with patient and father of patient. Patient said I am not staying after 10:30pm.. cause then the counseling center will put me someplace. He said they will put me across from the [facility] in a hotel. Patient's father and this editorial writer assured patient he would be safe. Patient's father stated that he has back issues and needs to go home but wants to securely sends meds with patient to facility. Father stated he will take the PRN meds home but the daily meds he will send to the facility. SCAR asked RN to speak to the patient's father about securing meds for transport. Sintia VASQUEZ
[2020-12-20 23:00] VITALS: RESP 18
[2020-12-21] VITALS (13 sets, daily range): BP systolic 116–159; BP diastolic 80–117; PULSE 90–126; RESP 14–20; TEMP 36.4; O2SAT 93–98
--- NOTE | 2020-12-21 05:29 | ED.RN ---
Talking with father and patient regarding medications patient takes in the am. He takes his home meds at 4/430 am and he is ancxious about not getting them. Talked to Dr Shields about hs Vraylar 3 and 1.5 and 20 mg omeprazole. Permission given to do verbal order for them to be given this am but the pharm cannot dispense them since they are not formulary. The patient's father is aware and coming in soon with his medications and will also bring him coffee and keep him company. Father is aware waiting on [facility] and still a waiting game at this time.
--- NOTE | 2020-12-21 06:27 | ED.RN ---
nicotine patch fell off pt- new order placed per MD
[2020-12-21] MEDS: CARIPRAZINE HCL 1.5 MG CAPSULE PO (06:40)
[2020-12-21] MEDS: Omeprazole 20 MG Capsule PO (06:40)
[2020-12-21] MEDS: CARIPRAZINE HCL 3 MG CAPSULE PO (06:40)
--- NOTE | 2020-12-21 06:40 | ED.RN ---
pt took own vraylar and omeprazole this am
[2020-12-21] MEDS: LORazepam 1 MG Tablet PO ×2 (09:25→15:44)
[2020-12-21] MEDS: ZONISAMIDE 100 MG CAPSULE 200 MG PO (09:29)
--- NOTE | 2020-12-21 10:00 | CM.ED ---
SOCIAL WORK Call to Crisis, spoke with Ashlee to request update on patient. Patient has been declined at [facility]. This worker to facilitate placement. Lavinia Sahu, LIME BOILER, ALIGNMENT SPECIALIST
--- NOTE | 2020-12-21 10:20 | CM.ED ---
SOCIAL WORK Met with patient and patient's father in room. Introduced role and provided update on placement efforts. All questions answered. Call to [facility], spoke with Intake. Referral faxed at this time. Lavinia Sahu MSW, IMAGE ASSEMBLER
[2020-12-21] MEDS: Acetaminophen 500 MG Tablet 1000 MG PO (10:32)
[2020-12-21] MEDS: DULoxetine Hcl 30 MG Capsule PO (10:32)
[2020-12-21] MEDS: Lacosamide 100 MG Tablet 300 MG PO (10:32)
[2020-12-21] MEDS: LUMATEPERONE TOSYLATE 42 MG CAPSULE PO (12:20)
--- NOTE | 2020-12-21 12:20 | CM.ED ---
SOCIAL WORK Call to [facility], no adult beds available. Call to [facility], intake reports will review referral with psychiatrist and get back to this worker. Lavinia Sahu, MEN'S GARMENT FITTER, SHEARER PRINTED CIRCUIT BOARDS
--- NOTE | 2020-12-21 13:45 | CM.ED ---
SOCIAL WORK Call from Lupe with [facility]. Patient accepted to [facility] by Dr. Guerrero. Nurse to call report to [phone]. Lupe reports will call this worker back once nurse able to call report and will provide bed number for clerical secretary to set up transport. Patient, patient's father and nursing staff updated. Plan: [facility], CHEMISTRY LECTURER, HEAD FIELD HOCKEY COACH
--- NOTE | 2020-12-21 14:37 | NURSING ---
CALLED [facility], ETA IS 90 MIN. TALKED TO AUGUSTINA
== END 2020-12-21 16:48 | disposition home or self-care (01) ==
PROVIDERS: Emergency Provider Emergency Medicine; PCP Family Medicine
DX: F22 Delusional disorders (principal); F31.9 Bipolar disorder, unspecified; F20.9 Schizophrenia, unspecified; F41.9 Anxiety disorder, unspecified; G40.909 Epilepsy, unspecified, not intractable, without status epilepticus; Z79.899 Other long term (current) drug therapy; F17.200 Nicotine dependence, unspecified, uncomplicated
CPT/HCPCS: 36415; 80053; 80307; 81001; 82077; 84443; 85025; 87426; 93005; 99285

== ENCOUNTER 2023-08-08 12:45 | Emergency (ER) | payer MEDICAID, SELFPAY ==
[2023-08-08 12:46] VITALS: PULSE 109; RESP 18; TEMP 37.3; O2SAT 94; BMI 41.8
[2023-08-08 16:14] LABS: Amphetamine Urine VISTA NEGATIVE (<1000 ng/mL); Barbiturate Urine VISTA NEGATIVE (< 200 ng/mL); Benzodiazepine Urine VISTA NEGATIVE (< 200 ng/mL); Cocaine Urine VISTA NEGATIVE (< 300 ng/mL); Ecstacy Urine VISTA NEGATIVE (< 500 ng/mL); Methadone Urine VISTA NEGATIVE (< 300 ng/mL); PCP Urine VISTA NEGATIVE (< 25 ng/mL); THC Urine VISTA POSITIVE (< 50 ng/mL); Vista UDS pH Range 7
--- NOTE | 2023-08-08 16:25 | ED.RN ---
PT GOES OUT OF ROOM, STATING HE IS GOING TO GO SMOKE. PT. STOPPED BY OFFICER JACK IN [place].
--- NOTE | 2023-08-08 16:37 | EX.ED.VIS.PS ---
HPI HPI - Psych History of Present Illness Chief Complaint: Mental Health Detail of Chief Complaint: Bizarre behavior per EMS per father Informant: patient, parent and EMS Onset/Context/Timing Onset: Weeks Context: Gradual Onset Conflict: - (Not applicable) Timing: Continuous and Waxes and wanes Current Severity: Moderate Maximum Severity: Severe Relieved by: Nothing Associated Symptoms Associated Symptoms - Psych: Positive for Change in Eating, Change in sleeping, Easily distracted, Flight of Ideas, Pressured Speech and Agitated; Negative for Decreased Concentration, Hopelessness, Suicidal Thoughts, Grandiosity, Angry, Hostile, Threatening, Confusion, Paranoia, Visual Hallucinations or Auditory Hallucinations Narrative Narrative: Patient is a 33-year-old male with history of schizophrenia. He is seen by hospice social worker and psychiatrist at the crisis center. 8 weeks ago his medications were changed. He has not had no improvement. Father states his behavior has become more abnormal. Patient denies suicidal homicidal ideations. Patient informed me that he has history of diabetes which she does not. He also reports other medical problems which he does not help. Patient is not a good informant. Patient denies auditory or visual hallucinations. Per father he is taking his medication. Patient does admit to smoking cigarettes. Denies drug use. Denies alcohol use. Prior similar symptoms: Yes Recent Illness/Hospitalization: No PFSH PFSH Medical History Bipolar disorder Depression Schizophrenia Seizures Home Medications lacosamide 150 mg tablet (Vimpat) 300 mg PO BID sz 02/27/16 [History Last Taken 08/08/23] lorazepam 1 mg tablet 1 mg PO DAILY PRN PRN Anxiety 02/27/16 [History Last Taken 08/06/23] zonisamide 100 mg capsule (Zonegran) 200 mg PO BID sz 02/27/16 [History Last Taken 08/08/23] duloxetine 30 mg capsule,delayed release 30 mg PO DAILY 12/20/20 [History Last Taken 08/07/23] hydroxyzine HCl 50 mg tablet 50 mg PO BID PRN Anxiety 12/20/20 [History Last Taken 08/01/23] haloperidol 2 mg tablet 2 mg PO BID 08/08/23 [History Last Taken 08/08/23] paliperidone 9 mg tablet,extended release 24 hr 9 mg PO Q24H 08/08/23 [History Last Taken 08/08/23] pantoprazole 40 mg tablet,delayed release 40 mg PO DAILY 08/08/23 [History Last Taken 08/07/23] Allergy/AdvReac Type Severity Reaction Status Date / Time valbenazine Allergy Hives Verified 08/08/23 12:46 Surgical History H/O brain surgery S/P placement of VNS (vagus nerve stimulation) device Social History (Updated 08/08/23 @ 16:[address] Nathan Shields MD) household members: family Smoking Status: Heavy Smoker (>10/day) ROS ROS ED Review of Systems ROS Unobtainable: due to mental condition EXAM Physical Exam Const Vital Signs: 08/08/23 12:46 Temperature 99.1 F Temperature Source Oral Pulse Rate 109 H Respiratory Rate 18 Pulse Ox 94 Oxygen Delivery Method Room Air Positive well nourished, well developed and obese General Appearance ED: well developed, irritable and NAD; Negative for pallor Nutritional Appearance: obese HEENT Reports moist mucous membranes normocephalic and atraumatic Eyes PERRL and EOMs intact bilaterally General Eye ED: Negative for pale conjunctiva or scleral icterus Neck no lymphadenopathy, supple and no JVD Resp normal respiratory effort and clear to auscultation bilaterally Cardio S1 normal heart sound, S2 normal heart sound and no murmurs Rate: regular rate Rhythm: regular rhythm GI non-tender, non-distended and no masses Auscultation: normoactive bowel sounds Palpation: soft Back/Spine Thoracic Spine / Upper Back: thoracic spinal tenderness Lumbar Spine / Lower Back: lumbar spinal tenderness Extremity normal to inspection General Extremety ED: Negative for edema or tenderness General Extremity: Negative for edema Neuro oriented x3, CN's II-XII intact bilaterally and no sensory deficits noted Labelle Coma Scale: document GCS findings Spontaneous Obeys Commands Oriented 15 Sensorium / Orientation: alert Psych denies hallucinations, denies homicidal ideation and denies suicidal ideation; Negative for thought process normal, affect normal or activity/motor behavior normal Appearance: grossly normal Attitude: evasive and agitated Activity / Motor Behavior: psychomotor agitation Speech: minimal Mood & Affect: irritable and labile affect Thought Process: illogical and loose associations Attention / Concentration: attention grossly intact Memory / Cognition: memory grossly impaired Impaired Memory Type(s): Positive for short term and usp Insight: poor Judgement: poor Skin General Skin Exam: Negative for jaundice or pallor Lesions: no lesions Rashes: no rashes MDM MDM MDM Narrative Medical decision making narrative: Patient failed outpatient therapy for his schizophrenia and depression. He was brought to the emergency room by EMS after father contacted EMS and crisis center. Case management was consulted for emergent hospitalization for exacerbation of his schizophrenia which failed outpatient therapy. Lab Data Attestation: I reviewed the patient's lab results. Lab results narrative: Tox is positive for cannabis. White count is slightly elevated at 11.6 with normal differential. Hemoglobin is 18.3 with hematocrit of 54.9. This represents secondary polycythemia vera. This is due to him smoking 1-1/2 to 2 packs/day. Glucose is slightly elevated 124 with a normal CO2 and anion gap. Potassium is 3.4 and is slightly below normal and within lab error. Labs: Laboratory Results - last 24 hr 08/08/23 08/08/23 15:25 16:54 WBC 11.6 H RBC 6.04 Hgb 18.3 H* Hct 54.9 H MCV 90.9 MCH 30.3 MCHC 33.3 RDW Std Deviation 43.0 RDW Coeff of Abhijeet 12.8 Plt Count 233 MPV 11.4 Immature Gran % (Auto) 0.300 Neut % (Auto) 70.7 H Lymph % (Auto) 21.7 Republic % (Auto) 4.9 Eos % (Auto) 2.0 Baso % (Auto) 0.4 Absolute Neuts (auto) 8.2 H Absolute Lymphs (auto) 2.52 Nucleated RBC % 0 Sodium 137 Potassium 3.4 L Chloride 103 Carbon Dioxide 28.0 Anion Gap 6 BUN 8 Creatinine 0.83 Estim Creat Clear Calc 124.76 Est GFR (MDRD) Af Amer 138 Est GFR (MDRD) Non-Af 114 BUN/Creatinine Ratio 9.6 L Glucose 124 H Calcium 10.1 Urine Opiates Screen NEGATIVE Urine Methadone Screen NEGATIVE Ur Barbiturates Screen NEGATIVE Ur Phencyclidine Scrn NEGATIVE Ur Amphetamines Screen NEGATIVE MDMA (Ecstasy) Screen NEGATIVE U Benzodiazepines Scrn NEGATIVE Urine Cocaine Screen NEGATIVE U Cannabinoids Screen POSITIVE H Ur Drug Screen Comment Rhythm Strip Rhythm Strip: Sinus Rhythm Rate: 95 Ectopy: - (There is no prolongation of his QT interval.) Discharge Plan Triage Chief Complaint: Mental Health ED Provider: Nathan Shields Dx/Rx/DC Orders Clinical Impression: Failure of outpatient treatment, Paranoia, Acute exacerbation of chronic schizophrenia Prescriptions: No Action zonisamide [Zonegran] 100 MG capsule 200 mg PO BID Patient Comments: seizures lorazepam 1 MG tablet 1 mg PO DAILY PRN PRN (Reason: Anxiety) lacosamide [Vimpat] 150 MG tablet 300 mg PO BID hydroxyzine HCl 50 mg Tablet 50 mg PO BID PRN (Reason: Anxiety) duloxetine 30 mg Capsule,Delayed Release(Dr/Ec) 30 mg PO DAILY paliperidone 9 mg tablet extended release 24hr 9 mg PO Q24H haloperidol 2 mg tablet 2 mg PO BID pantoprazole 40 mg tablet,delayed release (DR/EC) 40 mg PO DAILY Primary Care Provider: Gus Fletcher Referrals: Gus Fletcher MD [Primary Care Provider] - Disposition Disposition: Psychiatric Hospital or Unit
--- NOTE | 2023-08-08 16:43 | CM.ED ---
Social Work Psychiatric Assessment Reason for consult: Mental Health Informant(s): Patient, medical record, Father - Sean Chief Complaint: Difficulty with psychiatric medication adjustments Marital/Social History/Living Situation: Patient is a single 33-year-old male that resides with his parents. Pt prefers the name Jaclyn. History: None Education and Employment History: High school, disabled Mental Health Treatment/History: Patient has a history of schizoaffective bipolar type. 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 Pt sees Gus Talavera at [facility] and has been having medications adjustments in the past 8 weeks. Pt has had several med changes with negative symptoms. Pt reports multiple psychiatric placements in the past. ? Substance Abuse Hx: Denies, nicotine only Abuse Issues/Trauma HX: Pt denies. Risk to Self/Others: Patient denies SI/HI and reports one attempt at age 16 but would not discuss attempt further. Triggers/Stressors/Risk factors: Medication changes Coping Skills: reading, TV, phone Support/Resources: parents, grandparents, girlfriend Mental Status Exam: ?Pt is oriented x3 but is not aware of the reason he is at the hospital/situation. Appearance/General Behavior/Mood/Affect: Pt presents as disheveled. Pt is cooperative and mood/affect presents as flat. Pt denies mood concerns. Pt?s father reports increased mood swings and irritability. ? Communication Pattern/Thought process: Pt has tangential speech and flight of ideas. Pt answers questions inaccurately and provides unrelated answers at times. Pt has delusions and paranoia. Denies AVH General Intellectual Functioning:?? Average to below average. History of DD services Judgment/Insight: Pt presents with poor judgment and insight. Assessment: Patient presents at the ED at request of psychiatric provider for difficulty with medication changes. Pt reports he is here for blood work only. Pt?s father Sean is present in the room and assists with information. Pt does not provide accurate information but is irritated when father provides clarification. Pt is calm and cooperative throughout assessment. Pt?s father reports 8 weeks ago patient was having increased delusions and paranoia which prompted some medication adjustments. Pt did start abilify with negative results and was taken off of it and has had recent addition of Haloperidol and has had ongoing negative symptoms throughout medications changes. Pt presents with delusions, paranoia, tangential speech, paranoia, irritability, mood swings and bizarre behaviors. Pt has had a change in sleeping and eating habits with med changes where he is sleeping less and eating less. Pt reports he wakes up because ?someone gags me in my sleep.? Pt has a history of 2 brain surgeries from spinal meningitis as a child and seizures which are well managed with medications. Pt?s father is a main caregiver and reports difficulty with caring for son and son is very paranoid/delusional regarding his parents being the enemy. Pt reports ?the clues are there? and discusses clues which let him know someone is watching or following him. Pt reports multiple college degrees, father reports this is inaccurate. Pt said his father is a ?sledge hammer.? Pt reports multiple psychiatric stays and that he will not put a gown on because that is how he ?will get to a psych hospital.? Pt insists he cannot take his medications because his insurance will not cover it. Pt?s father reassures him that he will cover medication expenses. Pt?s father reports reduction in caring for hygiene and generally being uncooperative and irritable. Pt does not agree with father. Pt behaves erratically, with sunglasses on in his hospital room. Pt?s father reports difficulty managing patient as he is becoming more argumentative with parents and refusing to cooperate with an increase in unusual behaviors/delusions. Pt?s father reports he has not been aggressive but is concerned due to escalation and history of similar episodes leading to aggression. Patient?s medication changes have been attempted through outpatient care. Patient would benefit from inpatient psychiatric placement for medication review, delusions, paranoia, and symptom management. ED physician is in agreement that patient is in need of inpatient psychiatric stabilization and has pink slipped the patient. Plan: Patient to be referred for inpatient psychiatric placement for stabilization. Alma Carey LACE PAPER MACHINE OPERATOR, CRYSTAL EVALUATOR
[2023-08-08 17:04] LABS: Absolute Lymphocyte Count 2.52 X10^3/uL (0.83-4.51); Absolute Neutrophil Count 8.2 X10^3/uL (2.0-7.7); Basophil# 0.05 X10^3/uL; Basophil% 0.4 % (0-1); Eosinophil# 0.23 X10^3/uL; Hematocrit 54.9 % (40-54); Lymphocyte # 2.52 X10^3/ul (0.83-4.51); Lymphocyte % 21.7 % (19-41); Mean Corp Hgb Conc 33.3 g/dL (32-36); Mean Corpuscular Hgb 30.3 pg (27.0-32.0); Mean Corpuscular Volume 90.9 fL (80-94); Mean Platelet Vol. 11.4 fl (6.2-12.0); Monocyte# 0.57 X10^3/uL; Monocyte% 4.9 % (0-10); NRBC Flagged by Analyzer 0 % (0-5); Neutrophil # 8.19 X10^3/uL (2.7-7.7); Neutrophil % 70.7 % (47-70); Platelet Count 233 K/mm3 (150-450); RBC Distribution Width CV 12.8 % (11.6-14.6); Red Blood Count 6.04 M/mm3 (4.6-6.2); White Blood Count 11.6 K/mm3 (4.4-11.0)
[2023-08-08 17:10] LABS: Hemoglobin 18.3 g/dL (13.0-16.5)
[2023-08-08 17:17] LABS: Anion Gap 6 (5-15); BUN 8 mg/dL (7-18); BUN/Creat Ratio 9.6 RATIO (10-20); Calcium,Total 10.1 mg/dL (8.5-10.1); Chloride 103 mmol/L (98-107); Creatinine, Serum 0.83 mg/dL (0.70-1.30); EST Glomerular Filtration Rate 114 mL/min (>60); Est Glom Filt Rate - Afr Amer 138 mL/min (>60); Estimated Creatinine Clearance 124.76 ml/min; Glucose 124 mg/dL (74-106); Potassium 3.4 mmol/L (3.5-5.1); Sodium Level 137 mmol/L (136-145)
--- OUTSIDE RECORDS SUMMARY | 2023-08-08 17:28 | XMS RPT_ITS | CCD ---
Author Name Unknown Address [email or web address] [place] [address] Organization [facility] Care Team Providers Care Internet Assessor Name Role Phone JODEE KHAN Unavailable Unavailable RENA TRAN Unavailable Unavailable RAUL MUELLER Unavailable Unavailable Andre Jimenez MD Primary Care Provider Andre Jimenez MD Primary Care Provider Andre Jimenez MD Primary Care Provider [phone] VIRGINIA OLMEDO Attending Unavailable VIRGINIA OLMEDO Primary Care Unavailable VIRGINIA OLMEDO Admitting Unavailable ANDRE JIMENEZ Consulting Unavailable PROVIDER, UNKNOWN Consulting Unavailable MILADIS TREVIZO Attending Unavailable ANDRE JIMENEZ Primary Care Unavailable ANDRE JIMENEZ Attending Unavailable ANDRE JIMENEZ Primary Care Unavailable ANDRE JIMENEZ Referring Unavailable ANDRE JIMENEZ Primary Care Unavailable ANDRE JIMENEZ Attending Unavailable ANDRE JIMENEZ Primary Care Unavailable ANDRE JIMENEZ Primary Care Unavailable ANDRE JIMENEZ Referring Unavailable ANDRE JIMENEZ Primary Care Unavailable ANDRE JIMENEZ Primary Care Unavailable ANDRE JIMENEZ Primary Care Unavailable Allergies Allergy Classification Reported Allergen(s) Allergy Type Date of Onset Reaction(s) Facility (20 sources) aspartame; Translations: [ASPARTAME] Drug Allergy 0 Mental Status Change [facility] Repository (20 sources) carbon dioxide; Translations: [CARBON DIOXIDE] Drug Allergy 6 Other: See Comments [facility] Repository (20 sources) topiramate; Translations: [TOPIRAMATE] Drug Allergy 3 Mental Status Change [facility] Repository (20 sources) MONOSODIUM GLUTAMATE (MSG); Translations: [MONOSODIUM GLUTAMATE (MSG)] Propensity to adverse reactions to food (disorder) 6 Unknown [facility] Repository (1 source) OTHER; Translations: [OTHER] Propensity to adverse reactions (disorder) 2 AOF [facility] Repository (20 sources) valbenazine; Translations: [VALBENAZINE] Drug Allergy 1 Hives [facility] Work Phone: (20 sources) Caramel; Translations: [CARAMEL] Drug Allergy 8 Unknown [facility] (1 source) Cephalexin; Translations: [CEPHALEXIN] Drug Allergy 3 [facility] Repository Medications Current Medications Medication Drug Class(es) Dates Sig (Normalized) Sig (Original) amoxicillin 875 mg / clavulanate 125 mg oral tablet (1 source) Penicillin-class Antibacterial Start: 04-24-2023 End: 05-01-2023 take 1 tablet by mouth twice daily amoxicillin-clav ulanic acid (AUGMENTIN) 875-125 mg per tablet Indications: Preseptal cellulitis Take 1 tablet by mouth twice daily for 7 days. 14 tablet 0 04/24/2023 05/01/2023 Active Completed/Discontinued Medications Medication Drug Class(es) Dates Sig (Normalized) Sig (Original) acetaminophen 325 mg oral tablet (20 sources) Start: 04-13-2020 take 2 tablets by mouth every six hours as needed acetaminophen (TYLENOL) 325 mg tablet Take 2 tablets by mouth every 6 hours as needed for Pain. 100 tablet 1 04/13/2020 Active Problems Active Problems Problem Classification Problem Date Documented Da te Episodic/Chronic Anxiety disorders (20 sources) Generalized anxiety disorder; Translations: [Generalized anxiety disorder] Onset: 04-05-2009 04-15-2017 Chronic Epilepsy; convulsions (20 sources) Partial epilepsy with impairment of consciousness; Translations: [Localization-relat ed (focal) (partial) symptomatic epilepsy and epileptic syndromes with complex partial seizures, not intractable, without status epilepticus] Onset: 11-23-2005 Chronic Genitourinary symptoms and ill-defined conditions (1 source) Frequency of micturition; Translations: [Urinary frequency] Onset: 07-30-2023 Episodic Impulse control disorders (20 sources) Impulse disorder, unspecified; Translations: [Impulse control disorder] Onset: 04-10-2017 04-15-2017 Chronic Mood disorders (20 sources) Recurrent major depressive episodes, moderate ; Translations: [Major depressive disorder, recurrent, moderate] Onset: 04-05-2009 03-02-2016 Chronic Other inflammatory condition of skin (1 source) Intertrigo; Translations: [Erythema intertrigo] 04-24-2023 Episodic Other nervous system disorders (20 sources) Disorder of brain; Translations: [Encephalopathy, unspecified] Onset: 11-25-2011 Chronic Other nutritional; endocrine; and metabolic disorders (1 source) Morbid obesity; Translations: [Morbid (severe) obesity due to excess calories] Chronic Other nutritional; endocrine; and metabolic disorders (8 sources) Body mass index 40+ - severely obese; Translations: [Morbid (severe) obesity due to excess calories] Onset: 12-13-2022 Chronic Other nutritional; endocrine; and metabolic disorders (1 source) Morbid (severe) obesity due to excess calories; Translations: [Morbid obesity with BMI of 50.0-59.9, adult ([facility])] Onset: 11-09-2022 Chronic Other nutritional; endocrine; and metabolic disorders (1 source) Body mass index (BMI) 50.0-59.9, adult; Translations: [Morbid obesity with BMI of 50.0-59.9, adult ([facility])] Onset: 11-09-2022 Chronic Residual codes; unclassified (20 sources) Past history of procedure; Translations: [Presence of other specified functional implants] Onset: 12-10-2016 12-10-2016 Chronic Schizophrenia and other psychotic disorders (20 sources) Delusions; Translations: [Delusional disorders] Onset: 03-02-2016 03-02-2016 Chronic Skin and subcutaneous tissue infections (1 source) Preseptal cellulitis; Translations: [Periorbital cellulitis] 04-24-2023 Episodic Substance-related disorders (20 sources) Nicotine dependence; Translations: [Nicotine dependence, unspecified, uncomplicated] Onset: 09-28-2019 09-28-2019 Chronic Urinary tract infections (3 sources) Urinary tract infection, site not specified; Translations: [Urinary tract infection, site not specified] Onset: 07-10-2023 Episodic Past or Other Problems Problem Classification Problem Date Documented Date Episodic/Chronic Attention-deficit, conduct, and disruptive behavior disorders (20 sources) Aggressive behavior; Translations: [Other symptoms and signs involving appearance and behavior] Onset: 04-10-2017 04-10-2017 Episodic Cardiac dysrhythmias (20 sources) Tachycardia; Translations: [Tachycardia, unspecified] Onset: 11-25-2011 Episodic Epilepsy; convulsions (1 source) Seizure; Translations: [Unspecified convulsions] Onset: 06-25-2013 03-03-2016 Episodic Other connective tissue disease (20 sources) Musculoskeletal pain; Translations: [Myalgia, other site] Onset: 03-03-2016 03-03-2016 Episodic Residual codes; unclassified (20 sources) Tobacco user; Translations: [Tobacco use] Onset: 03-03-2016 03-03-2016 Episodic Unclassified (1 source) Other symptoms and signs involving emotional state; Translations: [Other symptoms and signs involving emotional state] Onset: 04-10-2017 Episodic Results Test Name Value Interpretation Reference Range Facil ity Vital Signs Date Time Vital Sign Value Performing Clinician Faci lity 04-24-2023 13:49-0400 Body temperature 98.4 [degF] David Tanner APRN.ENRICHMENT TEACHER Work Phone: [facility] 04-24-2023 13:49-0400 Body weight 146.06 kg David Tanner APRN.ENRICHMENT TEACHER Work Phone: [facility] 04-24-2023 13:49-0400 Diastolic blood pressure 84 mm[Hg] David Tanner FLORICULTURIST.ENRICHMENT TEACHER Work Phone: [facility] 04-24-2023 13:49-0400 Heart rate 130 /min David Tanner APRN.ENRICHMENT TEACHER Work Phone: [facility] 04-24-2023 13:49-0400 Respiratory rate 26 /min David Tanner APRN.ENRICHMENT TEACHER Work Phone: [facility] 04-24-2023 13:49-0400 SaO2% (BldA) [Mass fraction] 94 % David Tanner FLORICULTURIST.ENRICHMENT TEACHER Work Phone: [facility] 04-24-2023 13:49-0400 Systolic blood pressure 142 mm[Hg] David Tanner APRN.ENRICHMENT TEACHER Work Phone: [facility] 11-09-2022 09:44-0400 Body height 175.3 cm Andre Jimenez MD Work Phone: [facility] 11-09-2022 09:44-0400 Body weight 155.18 kg Andre Jimenez MD Work Phone: [facility] 11-09-2022 09:44-0400 Diastolic blood pressure 80 mm[Hg] Andre Jimenez MD Work Phone: [facility] 11-09-2022 09:44-0400 Heart rate 90 /min Andre Jimenez MD Work Phone: [facility] 11-09-2022 09:44-0400 Respiratory rate 20 /min Andre Jimenez MD Work Phone: [facility] 11-09-2022 09:44-0400 Systolic blood pressure 120 mm[Hg] Andre Jimenez MD Work Phone: [facility] Encounters Encounter Date Encounter Type Care Provider Facility Start: 07-30-2023 End: 07-31-2023 ambulatory ANDRE JIMENEZ Facility:[facility] Start: 07-10-2023 End: 07-10-2023 ambulatory [facility] Start: 04-24-2023 End: 04-24-2023 ambulatory ANDRE JIMENEZ Facility:[facility] Start: 04-24-2023 End: 04-24-2023 Patient encounter procedure David Tanner APRN.ENRICHMENT TEACHER Work Phone: [facility] Care Procedures Date Procedure Procedure Detail Performing Clinician Start: 03-02-2016 H/O: surgery S/P brain surgery Constance Chan PA-C Work Phone: Plan of Treatment Date Care Activity Detail Author Start: 02-08-2057 PNEUMOCOCCAL (3 - PPSV23 if available, else PCV20) PNEUMOCOCCAL (3 - PPSV23 if available, else PCV20) [facility] Start: 02-08-2057 PNEUMOCOCCAL (3 - PPSV23 or PCV20) PNEUMOCOCCAL (3 - PPSV23 or PCV20) [facility] Start: 02-08-2057 Pneumococcal vaccination Pneumococcal Vaccine (3 - PPSV23 or PCV20) [facility] Start: 04-05-2023 Influenza vaccination [facility] Start: 11-09-2022 End: 01-09-2023 Comprehensive metabolic 2000 panel - Serum or Plasma [facility] Work Phone: Immunizations Immunization Date Immunization Notes Care Provider Nelly andujar 12-13-2015 pneumococcal conjuga te vaccine, 13 valent Constance Pritchett PA-C Work Phone: [facility] 07-04-2015 influenza, injectabl e, quadrivalent, preservative free Constance Pritchett PA-C Work Phone: [facility] 07-04-2015 influenza virus vacc ine, unspecified formulation David Tanner APRN.CNP Work Phone: [facility] 08-03-2013 pneumococcal polysaccharide vaccine, 23 valent Andre Jimenez MD Work Phone: [facility] Payers Date Payer Category Payer [place] [id number] 2018-Present [phone] [address] [place] [address] Medicaid [id number] 2018 [place] [id number] 2018-Present [phone] [address] [place] [address] Medicaid [id number] 2018 Medicaid [id number] 1990 Unknown [id number] Social History Date Type Detail Facility Start: 12-01-2013 End: 11-09-2022 Tobacco smoking status NHIS Occasional tobacco smoker [facility] History of tobacco use Cigarette Smoker C [facility] Start: 12-01-2013 End: 12-13-2022 Cigarettes smoked current (pack per day) - Reported 1.5 [facility] Start: 12-01-2013 End: 11-09-2022 Tobacco use and exposure Former smokeless tobacco user [facility] History of tobacco use Snuff User [facility] History of tobacco use Chews Tobacco [facility] Start: 04-13-2020 End: 04-24-2023 Alcohol intake Current non-drinker of alcohol (finding) [facility] Start: 1990 Sex Assigned At Male C [facility] Start: 11-09-2022 History SDOH Alcohol Frequency 1 [facility] Start: 11-09-2022 History SDOH Alcohol Std Drinks 0 [facility] Start: 11-09-2022 History SDOH Social Connections Phone 5 [facility] Start: 11-09-2022 History SDOH Social Connections Get Together 2 [facility] Start: 11-09-2022 History SDOH Social Connections Buddhism 3 [facility] Start: 11-09-2022 History SDOH Social Connections Living 7 [facility] Start: 11-09-2022 History SDOH Financial 4 [facility] Start: 11-09-2022 End: 12-13-2022 Social connection and isolation panel [facility] Do you belong to any clubs or organizations such as episcopal groups, unions, fraternal or athletic groups, or school groups? Yes [facility] Are you now , , , , never or living with a partner? Never [facility] How often to you hav e a drink containing alcohol? Never [facility] How many standard dr inks containing alcohol do you have on a typical day? Patient does not drink [facility] How hard is it for y ou to pay for the very basics like food, housing, medical care, and heating Not very hard [facility] Do you feel stress - tense, restless, nervous, or anxious, or unable to sleep at night because your mind is troubled all the time - these days [OSQ] To some extent [facility] (I/We) worried fara er (my/our) food would run out before (I/we) got money to buy more. Never true [facility] In the past 12 month s, was there a time when you were not able to pay the mortgage or rent on time? No [facility] Start: 03-06-2019 Gender identity Identifies as male gender (finding) [facility] Start: 03-06-2019 Sexual orientation Heterosexual (mayank mclaughlin) [facility] Medical Equipment Procedure Code Equipment Code Equipment Origin al Text Equipment Identifier Dates Catheter Bactise al Evd Codman Silicone 3-15cm External Drainage - [id number] Start: 11-09-2015 Clinical Notes 07-11-2005 to 07-30-2023 David Tanner APRN.ENRICHMENT TEACHER - 04/24/2023 2:05 PM EDTTelephone Encounter - Teresa Au PA-C - 03/07/2023 12:42 PM EDTTelephone Encounter - Nancy Diego RN - 03/06/2023 9:17 AM EDT Note Date & Type Note Facility 07-30-2023 Note HNO ID: [id number] Author: Conor Wiseman MD Service: ? Author Type: Physician Type: Progress Notes Filed: 07/30/2023 11:19 AM Note Text: Patient presents with: Urinary Frequency: Frequency x several weeks HPI: Symptoms for weeks. Treated with Keflex at [facility] a few weeks ago. Urine culture 07/09/23 grew 10,000 -<50,000 CFU/ml Mixed microbiota . It is unclear if this is before or after treatment in [place]. He had thrush with the keflex. Dysuria: No Frequency: Yes. He has also been drinking a lot of gatorade zero. Hematuria: No Nausea: No Fever or chills: No Back pain: Yes Abdominal pain: No Prior UTI: Yes Personal history of kidney stones: No Right side feels frozen PAST MEDICAL HISTORY Diagnosis Date Breakthrough seizure (HCC) 11/14/2015 Developmental delay ALESSANDRA (generalized anxiety disorder) Major depressive disorder, recurrent episode, moderate (HCC) Meningoencephalitis age 6 EFREN (obstructive sleep apnea) Psychotic disorder ([facility]) Substance abuse ([facility]) Unspecified epilepsy without mention of intractable epilepsy MEDICATIONS: Current Outpatient Medications Medication Sig paliperidone ER (INVEGA) 9 mg 24 hr tablet Take 1 tablet by mouth every afternoon. olanzapine-samidorphan (LYBALVI) 20-10 mg tablet Take 1 tablet by mouth once daily. lacosamide (VIMPAT) 150 mg tab Take 2 tablets by mouth twice daily for 180 days. zonisamide (ZONEGRAN) 100 mg capsule Take 2 capsules by mouth twice daily. pantoprazole DR (PROTONIX) 40 mg tablet Take 1 tablet by mouth daily before breakfast. Take on empty stomach, 1/2 hr before meal. acetaminophen (TYLENOL) 325 mg tablet Take 2 tablets by mouth every 6 hours as needed for Pain. DULoxetine (CYMBALTA) 30 mg capsule Take 1 capsule by mouth once daily. hydrOXYzine HCl (ATARAX) 50 mg tablet Take 1 tablet by mouth every 8 hours as needed. erythromycin (ROMYCIN) 5 mg/gram (0.5 %) ophthalmic ointment Use 1 application in the left eye three times daily. (Patient not taking: Reported on 07/30/2023) No current facility-administered medications for this visit. ALLERGIES: ALLERGIES Allergen Reactions Aspartame Mental Status Change Triggers seizures Caramel Unknown Carbon Dioxide Other: See Comments Carbonation is a seizure trigger Cephalexin Other: See Comments Causes thrush Ingrezza [Valbenazi* Hives Monosodium Glutamat* Unknown Topiramate Mental Status Change Pt states he experienced hallucinations VITALS: BP 128/82 Pulse 110 Temp 37.1 ?C (98.8 ?F) (Tympanic) Resp 18 Wt (!) 142.5 kg (314 lb 3.2 oz) SpO2 95% BMI 46.40 kg/m? PHYSICAL EXAM: GEN: NAD, Accompanied by his father who provides much of the history. HEENT: EOMI, conjunctiva clear, MMM without white patches or erythema HEART: regular rate and rhythm, no murmurs LUNGS: clear to auscultation, no wheezes or crackles, no increased WOB ABDOMEN: Soft, nondistended, no masses, no suprapubic tenderness BACK: right CVA tenderness ASSESSMENT/PLAN: 1. Urinary frequency - ICD9: 788.41, ICD10: R35.0 - UA DIP, URINE (POC) - negative/normal. Urinary frequency may be related to polydipsia or behavioral issue. I recommended follow up with PCP if symptoms persist. He may need blood and urine electrolyte and analysis. Conor Wiseman MD [facility] 04-24-2023 Note HNO ID: [id number] Author: David Tanner APRN.ENRICHMENT TEACHER Service: ? Author Type: Nurse Practitioner Type: Progress Notes Filed: 04/24/2023 2:08 PM Note Text: Subjective HPI HPI Ruben Winter is a 33 year old male who presents today for CC of left eyelid swelling/pain. This started 2 days ago. Has tried nothing for relief. Symptoms are worsened by nothing. Risk factors reported irritation of left eyelid recently. Painful/itchy rash of left arm pit. Tried clotrimazole cream few times. PAST MEDICAL HISTORY Diagnosis Date Breakthrough seizure (HCC) 11/14/2015 Developmental delay ALESSANDRA (generalized anxiety disorder) Major depressive disorder, recurrent episode, moderate (HCC) Meningoencephalitis age 6 EFREN (obstructive sleep apnea) Psychotic disorder (HCC) Substance abuse ([facility]) Unspecified epilepsy without mention of intractable epilepsy PAST SURGICAL HISTORY Procedure Laterality Date CRNEC/CRX IMPLTJ NSTIM ELTRD CERE CORTICAL 01/2003 S VNS GENERATOR MODEL 102 2009 SEPTOPLASTY ALLERGIES Aspartame, Caramel, Carbon Dioxide, Ingrezza [Valbenazine], Monosodium Glutamate (Msg), and Topiramate MEDICATIONS olanzapine-samidorphan (LYBALVI) 20-10 mg tablet Take 1 tablet by mouth once daily. lacosamide (VIMPAT) 150 mg tab Take 2 tablets by mouth twice daily for 180 days. zonisamide (ZONEGRAN) 100 mg capsule Take 2 capsules by mouth twice daily. pantoprazole DR (PROTONIX) 40 mg tablet Take 1 tablet by mouth daily before breakfast. Take on empty stomach, 1/2 hr before meal. acetaminophen (TYLENOL) 325 mg tablet Take 2 tablets by mouth every 6 hours as needed for Pain. DULoxetine (CYMBALTA) 30 mg capsule Take 1 capsule by mouth once daily. hydrOXYzine HCl (ATARAX) 50 mg tablet Take 1 tablet by mouth every 8 hours as needed. erythromycin (ROMYCIN) 5 mg/gram (0.5 %) ophthalmic ointment Use 1 application in the left eye three times daily. amoxicillin-clavulanic acid (AUGMENTIN) 875-125 mg per tablet Take 1 tablet by mouth twice daily for 7 days. nystatin (MYCOSTATIN) cream Apply 1 application to affected area three times daily for 7 days. FAMILY HISTORY Problem Relation Age of Onset No Ocular Disease Father No Ocular Disease Mother Cancer Mother leukemia Diabetes Maternal Uncle Social History Tobacco Use Smoking status: Some Days Packs/day: 1.50 Years: 6.00 Additional pack years: 0.00 Total pack years: 9.00 Types: Cigarettes Smokeless tobacco: Former Types: Snuff, Chew Substance Use Topics Alcohol use: No ROS Objective Blood pressure 142/84, pulse (!) 130, temperature 36.9 ?C (98.4 ?F), resp. rate 26, weight (!) 146.1 kg (322 lb), SpO2 94 %. HR recheck 108 manual by provider. Physical Exam Constitutional: General: He is not in acute distress. Appearance: He is not toxic-appearing or diaphoretic. HENT: Head: Normocephalic and atraumatic. Eyes: Comments: PERRLA Cardiovascular: Rate and Rhythm: Regular rhythm. Tachycardia present. Heart sounds: Normal heart sounds, S1 normal and S2 normal. Pulmonary: Effort: Pulmonary effort is normal. Breath sounds: Normal breath sounds. Skin: Neurological: Mental Status: He is alert and oriented to person, place, and time. Gait: Gait is intact. ASSESSMENT/PLAN: 1. Preseptal cellulitis - ICD9: 373.13, ICD10: L03.213 (primary diagnosis) -use medication as prescribed -follow up if symptoms persist, change Urgent f/u for worsening s/s. - ERYTHROMYCIN 5 MG/GRAM (0.5 %) EYE OINTMENT - AMOXICILLIN 875 MG-POTASSIUM CLAVULANATE 125 MG TABLET 2. Intertrigo - ICD9: 695.89, ICD10: L30.4 -use medication as prescribed -follow up if symptoms persist, worsen, change - NYSTATIN 100,000 UNIT/GRAM TOPICAL CREAM David Tanner APRN.[facility] 04-24-2023 History of Present illness Narrative Images from the original note were not included. Subjective HPI HPI Ruben Winter is a 33 year old male who presents today for CC of left eyelid swelling/pain. This started 2 days ago. Has tried nothing for relief. Symptoms are worsened by nothing. Risk factors reported irritation of left eyelid recently. Painful/itchy rash of left arm pit. Tried clotrimazole cream few times. PAST MEDICAL HISTORY Diagnosis Date Breakthrough seizure (HCC) 11/14/2015 Developmental delay ALESSANDRA (generalized anxiety disorder) Major depressive disorder, recurrent episode, moderate (HCC) Meningoencephalitis age 6 EFREN (obstructive sleep apnea) Psychotic disorder (HCC) Substance abuse (HCC) Unspecified epilepsy without mention of intractable epilepsy PAST SURGICAL HISTORY Procedure Laterality Date CRNEC/CRX IMPLTJ NSTIM ELTRD CERE CORTICAL 01/2003 S VNS GENERATOR MODEL 102 2009 SEPTOPLASTY ALLERGIES Aspartame, Caramel, Carbon Dioxide, Ingrezza [Valbenazine], Monosodium Glutamate (Msg), and Topiramate MEDICATIONS olanzapine-samidorphan (LYBALVI) 20-10 mg tablet Take 1 tablet by mouth once daily. lacosamide (VIMPAT) 150 mg tab Take 2 tablets by mouth twice daily for 180 days. zonisamide (ZONEGRAN) 100 mg capsule Take 2 capsules by mouth twice daily. pantoprazole DR (PROTONIX) 40 mg tablet Take 1 tablet by mouth daily before breakfast. Take on empty stomach, 1/2 hr before meal. acetaminophen (TYLENOL) 325 mg tablet Take 2 tablets by mouth every 6 hours as needed for Pain. DULoxetine (CYMBALTA) 30 mg capsule Take 1 capsule by mouth once daily. hydrOXYzine HCl (ATARAX) 50 mg tablet Take 1 tablet by mouth every 8 hours as needed. erythromycin (ROMYCIN) 5 mg/gram (0.5 %) ophthalmic ointment Use 1 application in the left eye three times daily. amoxicillin-clavulanic acid (AUGMENTIN) 875-125 mg per tablet Take 1 tablet by mouth twice daily for 7 days. nystatin (MYCOSTATIN) cream Apply 1 application to affected area three times daily for 7 days. FAMILY HISTORY Problem Relation Age of Onset No Ocular Disease Father No Ocular Disease Mother Cancer Mother leukemia Diabetes Maternal Uncle Social History Tobacco Use Smoking status: Some Days Packs/day: 1.50 Years: 6.00 Additional pack years: 0.00 Total pack years: 9.00 Types: Cigarettes Smokeless tobacco: Former Types: Snuff, Chew Substance Use Topics Alcohol use: No ROS Objective Blood pressure 142/84, pulse (!) 130, temperature 36.9 C (98.4 F), resp. rate 26, weight (!) 146.1 kg (322 lb), SpO2 94 %. HR recheck 108 manual by provider. Physical Exam Constitutional: General: He is not in acute distress. Appearance: He is not toxic-appearing or diaphoretic. HENT: Head: Normocephalic and atraumatic. Eyes: Comments: PERRLA Cardiovascular: Rate and Rhythm: Regular rhythm. Tachycardia present. Heart sounds: Normal heart sounds, S1 normal and S2 normal. Pulmonary: Effort: Pulmonary effort is normal. Breath sounds: Normal breath sounds. Skin: Neurological: Mental Status: He is alert and oriented to person, place, and time. Gait: Gait is intact. ASSESSMENT/PLAN: 1. Preseptal cellulitis - ICD9: 373.13, ICD10: L03.213 (primary diagnosis) -use medication as prescribed -follow up if symptoms persist, change Urgent f/u for worsening s/s. - ERYTHROMYCIN 5 MG/GRAM (0.5 %) EYE OINTMENT - AMOXICILLIN 875 MG-POTASSIUM CLAVULANATE 125 MG TABLET 2. Intertrigo - ICD9: 695.89, ICD10: L30.4 -use medication as prescribed -follow up if symptoms persist, worsen, change - NYSTATIN 100,000 UNIT/GRAM TOPICAL CREAM David Tanner APRN.ENRICHMENT TEACHER documented in this encounter [facility] 03-14-2023 Note HNO ID: [id number] Author: Tootie Teague PA-C Service: ? Author Type: Physician Rubber Boots And Shoes Repairer Type: Progress Notes Filed: 03/14/2023 7:58 PM Note Text: This note was created using Lean Train[employer]. Subjective Ruben Winter is a 33 year old male. HPI Presents with a skin infection on his abdomen x 1 day. He has a history of MRSA so dad was concerned and brought him in for evaluation. He had an tube of mupirocin but did not want to use it because it was out of date. No fever or chills. From the area. Review of Systems Skin: Positive for rash. All other systems reviewed and are negative. PAST MEDICAL HISTORY Diagnosis Date Breakthrough seizure (HCC) 11/14/2015 Developmental delay ALESSANDRA (generalized anxiety disorder) Major depressive disorder, recurrent episode, moderate (HCC) Meningoencephalitis age 6 EFREN (obstructive sleep apnea) Psychotic disorder (HCC) Substance abuse (HCC) Unspecified epilepsy without mention of intractable epilepsy Current Outpatient Medications Medication Sig Dispense Refill LORazepam (ATIVAN) 1 mg tablet Take half a tab or 0.5mg for a severe seizure PRN. Do not take more then 1mg in 24 hours. 15 tablet 1 olanzapine-samidorphan (LYBALVI) 20-10 mg tablet Take 1 tablet by mouth once daily. lacosamide (VIMPAT) 150 mg tab Take 2 tablets by mouth twice daily for 180 days. 360 tablet 1 zonisamide (ZONEGRAN) 100 mg capsule Take 2 capsules by mouth twice daily. [address] (PROTONIX) 40 mg tablet Take 1 tablet by mouth daily before breakfast. Take on empty stomach, 1/2 hr before meal. 90 tablet 3 acetaminophen (TYLENOL) 325 mg tablet Take 2 tablets by mouth every 6 hours as needed for Pain. 100 tablet 1 DULoxetine (CYMBALTA) 30 mg capsule Take 1 capsule by mouth once daily. hydrOXYzine HCl (ATARAX) 50 mg tablet Take 1 tablet by mouth every 8 hours as needed. doxycycline (VIBRA-TABS) 100 mg tablet Take 1 tablet by mouth twice daily for 7 days. 14 tablet 0 mupirocin (BACTROBAN) 2 % ointment Apply to affected area three times daily for 7 days. 22 g 0 No current facility-administered medications for this visit. PAST SURGICAL HISTORY Procedure Laterality Date CRNEC/CRX IMPLTJ NSTIM ELTRD CERE CORTICAL 01/2003 S VNS GENERATOR MODEL 102 2009 SEPTOPLASTY FAMILY HISTORY Problem Relation Age of Onset No Ocular Disease Father No Ocular Disease Mother Cancer Mother leukemia Diabetes Maternal Uncle Social History Tobacco Use Smoking status: Some Days Packs/day: 1.50 Years: 6.00 Total pack years: 9.00 Types: Cigarettes Smokeless tobacco: Former Types: Snuff, Chew Substance Use Topics Alcohol use: No Objective BP 128/78 Pulse 104 Temp 36.6 ?C (97.8 ?F) (Tympanic) Resp 16 Wt (!) 145.8 kg (321 lb 6.4 oz) BMI 47.46 kg/m? Physical Exam Vitals reviewed. Constitutional: Appearance: Normal appearance. HENT: Head: Normocephalic and atraumatic. Abdominal: Comments: Patient has erythema and warmth to touch over the right lower abdomen. No sign of abscess. No lymphangitic streaking. No drainage. Skin: General: Skin is warm and dry. Neurological: Mental Status: He is alert. Assessment and Plan ASSESSMENT/PLAN: 1. Skin infection - ICD9: 686.9, ICD10: L08.9 - Begin treatment with doxycycline PO BID and mupirocin - Tootie Teague PA-C [facility] 03-12-2023 Note HNO ID: [id number] Author: Miladis Trevizo, JOURDAN.ENRICHMENT TEACHER Service: ? Author Type: Nurse Practitioner Type: Progress Notes Filed: 03/13/2023 6:58 AM Note Text: [facility] VIRTUAL VISIT I have communicated my name and active licensure. The patient's identity and physical location were verified at the time of this visit. Either the patient or their legal sales representative public utilities has been informed of the risks and benefits of -- and alternatives to -- treatment through a remote evaluation and consents to proceed with the evaluation remotely. Patient on video with Efrain, Dad,Mom. Lives in [place], [place]. HISTORY OF PRESENT ILLNESS: Ruben Winter is a 33 year old male who is diagnosed with focal epilepsy, morbid obescity,, and presents today for six month visit. They are an established patient of Dr. Gtz'maurice and was last seen on 12/12/2021. Classification Summary Right Focal Epilepsy Seizures: 1. Bilaterally Asymmetric Tonic Seizure -> Generalized Tonic-Clonic Seizure 2. 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 Pathology: 2016 nonspecific Seizures:3-4 per week of tremors . JESUSITA. 2GTC-last was 1 1/2 months ago. AED's: ZNS 200mg BID LCM 150mg, 2 tabs BID LZP 1mg, takes 0.5mg PRN for seizure. At least 2x/week. In other health, Working with a nutrionist. Had just gotten up from afternoon nap at 5pm for this appointment. Vapes nicotine daily. Drinks 3-4 8 ounces of coffee per day. On Lybalvi now. Mood is flat. Reports VNS was turned off.. Occupation: none Driving: no Mood: Flat. Has providers from [facility]. Memory: Fair CURRENT OUTPATIENT MEDICATIONS: Current Outpatient Medications Medication Sig lacosamide (VIMPAT) 150 mg tab Take 2 tablets by mouth twice daily for 180 days. zonisamide (ZONEGRAN) 100 mg capsule Take 2 capsules by mouth twice daily. pantoprazole DR (PROTONIX) 40 mg tablet Take 1 tablet by mouth daily before breakfast. Take on empty stomach, 1/2 hr before meal. acetaminophen (TYLENOL) 325 mg tablet Take 2 tablets by mouth every 6 hours as needed for Pain. DULoxetine (CYMBALTA) 30 mg capsule Take 1 capsule by mouth once daily. hydrOXYzine HCl (ATARAX) 50 mg tablet Take 1 tablet by mouth every 8 hours as needed. No current facility-administered medications for this visit. PAST MEDICAL HISTORY Diagnosis Date Breakthrough seizure (HCC) 11/14/2015 Developmental delay ALESSANDRA (generalized anxiety disorder) Major depressive disorder, recurrent episode, moderate (HCC) Meningoencephalitis age 6 EFREN (obstructive sleep apnea) Psychotic disorder (HCC) Substance abuse (HCC) Unspecified epilepsy without mention of intractable epilepsy PAST SURGICAL HISTORY Procedure Laterality Date CRNEC/CRX IMPLTJ NSTIM ELTRD CERE CORTICAL 01/2003 S VNS GENERATOR MODEL 102 2009 SEPTOPLASTY FAMILY HISTORY Problem Relation Age of Onset No Ocular Disease Father No Ocular Disease Mother Cancer Mother leukemia Diabetes Maternal Uncle ASSESSMENT: Ruben Winter is a 33 year old male with history of seizures and multiple failed surgeries. Several seizures per day/week. Using Ativan for PRN rescue. Dad gives him this med. Remains on LCM and ZNS. Morbidly obese. Working with Nutrionist and diet. Exercise limited. Fatigued. Vaping nicotine. Continue with plan.. PLAN: - LABS: ZNS,LCM - Medications: -continue with ZNS 200mg BID -continue with LCM 150mg, 2 BID -continue with Ativan 1mg, takes 0.5mg for PRN rescue. -continue with all other daily medications -Counseled on harm to lungs with vaping/smoking -Needs exercise program along with Nutrition therapy. - Consults: none - Follow up: 5-[address] Gtz. OARRS checked and approved. Token # [id number] for Ativan renewal. I spent 20 minutes during this encounter counseling on seizures, use of medications, safety, harm in vaping, weight, need for movement, documentation. Miladis Trevizo, FLORICULTURIST.ENRICHMENT TEACHER March 12, 2023 [facility] 03-07-2023 Miscellaneous Notes LZP last filled 11/16/2022 Prior LZP Rx discontinued 12/13/2022 as patient reported to not be taking Visit with Miladis Trevizo APRN on 03/12/2023, med can be reviewed/refilled at visit next week LCM and ZNS sent to [facility] earlier today Teresa Au PA-C Last visit 12/12/2021. Next visit 03/12/23. The last lorazepam rx to use for rescue was sent 07/21/22. Request routed for review. Brandie Cruz RN Medication Concern Person Calling Ruben Winter Phone # [facility] Name of medication Lorazepam Concern with medication Patient requesting refill be sent to [facility] in [place]. Medication is not on current list. Patient of Dr. Gtz documented in this encounter [facility] 01-29-2023 Miscellaneous Notes The following approved medication requests have been transmitted electronically. Requested Prescriptions Signed Prescriptions Disp Refills zonisamide (ZONEGRAN) 100 mg capsule 360 capsule 0 Sig: Take 2 capsules by mouth twice daily. Authorizing Provider: EMELIA HARDING APRN.CNP Prescription Refill: Requested by: patient Please E-Scribe Caller Contact Number: Pharmacy Name: [facility] Pharmacy Number: [phone] Generic/ brand: 30 or 90 day supply requested: 90 Last appointment: 12/12/21 Next Appointment: none; sent to schedulers Patient of Dr. Gtz documented in this encounter [facility] 12-13-2022 Note HNO ID: [id number] Author: Andre Jimenez MD Service: ? Author Type: Physician Type: Progress Notes Filed: 12/13/2022 10:03 AM Note Text: Chief Complaint Patient presents with: Weight Problem HPI:This Team Access Model visit is a virtual encounter. It required patient-provider interaction for the medical decision making as documented below. Patient was offered a virtual/telemedicine appointment in lieu of an office visit due to recommendations to reduce patient exposure to COVID-19. Patient is aware of limitations of performing the visit without a face to face visit in the office setting and agrees. I have communicated my name and active licensure. The patient's identity and physical location were verified at the time of this visit. Either the patient or their legal sales representative public utilities has been informed of the risks and benefits of -- and alternatives to -- treatment through a remote evaluation and consents to proceed with the evaluation remotely. Pt and parents completing virtual visit. Weight - At previous OV pt was given an Rx of Ozempic for weight loss but they were not able to afford the medication and he never started this. MOther has worked with hogshead stripper and has made changes to his diet. Drinking more water during the day, eating less carbs. Also started on Nutrapherm which is an OTC dietary supplement to help with weight loss. Father states that he has lost some weight - he was 352, now 336. He's getting up and walking for exercise. Past medical history, appointments, medications, allergies reviewed. Previous Medical History PAST MEDICAL HISTORY Diagnosis Date Breakthrough seizure (HCC) 11/14/2015 Developmental delay ALESSANDRA (generalized anxiety disorder) Major depressive disorder, recurrent episode, moderate (HCC) Meningoencephalitis age 6 EFREN (obstructive sleep apnea) Psychotic disorder (HCC) Substance abuse (HCC) Unspecified epilepsy without mention of intractable epilepsy Previous Surgical History PAST SURGICAL HISTORY Procedure Laterality Date CRNEC/CRX IMPLTJ NSTIM ELTRD CERE CORTICAL 01/2003 S VNS GENERATOR MODEL 102 2009 SEPTOPLASTY Family History FAMILY HISTORY Problem Relation Age of Onset No Ocular Disease Father No Ocular Disease Mother Cancer Mother leukemia Diabetes Maternal Uncle Patient Allergies ALLERGIES Allergen Reactions Aspartame Mental Status Change Triggers seizures Caramel Unknown Carbon Dioxide Other: See Comments Carbonation is a seizure trigger Ingrezza [Valbenazi* Hives Monosodium Glutamat* Unknown Topiramate Mental Status Change Pt states he experienced hallucinations Current Medications Current Outpatient Medications on File Prior to Visit Medication Sig pantoprazole DR (PROTONIX) 40 mg tablet Take 1 tablet by mouth daily before breakfast. Take on empty stomach, 1/2 hr before meal. lacosamide (VIMPAT) 150 mg tab Take 2 tablets by mouth twice daily for 90 days. LYBALVI 20-10 mg tablet Take 1 tablet by mouth once daily. semaglutide (OZEMPIC) 0.25 mg or 0.5 mg(2 mg/1.5 mL) pen Inject 0.25 mg subcutaneously one time a week. zonisamide (ZONEGRAN) 100 mg capsule Take 2 capsules by mouth twice daily. LORazepam (ATIVAN) 1 mg tablet TAKE 1.2 (0.5 mg) TABLET BY MOUTH NEEDED FOR seizures lasting more THAN THREE minutes/seizure cluster. MAY REPEAT in TWO hours. DO not exceed TWO in 24 hours. acetaminophen (TYLENOL) 325 mg tablet Take 2 tablets by mouth every 6 hours as needed for Pain. DULoxetine (CYMBALTA) 30 mg capsule Take 1 capsule by mouth once daily. hydrOXYzine HCl (ATARAX) 50 mg tablet Take 1 tablet by mouth every 8 hours as needed. No current facility-administered medications on file prior to visit. Social History Social History Tobacco Use Smoking status: Some Days Packs/day: 1.50 Years: 6.00 Pack years: 9.00 Types: Cigarettes Smokeless tobacco: Former Types: Snuff, Chew Substance Use Topics Alcohol use: No EXAM: There were no vitals taken for this visit. General Appearance: Well appearing, alert, in no acute distress, well-hydrated, well nourished. and Morbidly obese. Health Maintenance List HEPATITIS B(1 of 3 - 3-dose series) Never done COVID-19 VACCINE(1) Never done DTAP,TDAP,TD(1 - Tdap) Never done INFLUENZA(Season Ended) due on 04/05/2023 PNEUMOCOCCAL(3 - PPSV23 if available, else PCV20) due on 02/08/2057 HEPATITIS C SCREENING Completed HIV SCREENING Completed Data reviewed Weight graph ASSESSMENT/PLAN: 1. Morbid obesity with BMI of 50.0-59.9, adult (HCC) - ICD9: 278.01, V85.43, ICD10: E66.01, Z68.43 Weight decreasing - Behavioral intervention; continue lifestyle and diet Follow up in 1 month for accountability and to monitor progress Andre Jimenez MD [facility] 12-13-2022 History of Present illness Narrative Chief Complaint Patient presents with: Weight Problem HPI:This Team Access Model visit is a virtual encounter. It required patient-provider interaction for the medical decision making as documented below. Patient was offered a virtual/telemedicine appointment in lieu of an office visit due to recommendations to reduce patient exposure to COVID-19. Patient is aware of limitations of performing the visit without a face to face visit in the office setting and agrees. I have communicated my name and active licensure. The patient's identity and physical location were verified at the time of this visit. Either the patient or their legal sales representative public utilities has been informed of the risks and benefits of -- and alternatives to -- treatment through a remote evaluation and consents to proceed with the evaluation remotely. Pt and parents completing virtual visit. Weight - At previous OV pt was given an Rx of Ozempic for weight loss but they were not able to afford the medication and he never started this. MOther has worked with hogshead stripper and has made changes to his diet. Drinking more water during the day, eating less carbs. Also started on Nutrapherm which is an OTC dietary supplement to help with weight loss. Father states that he has lost some weight - he was 352, now 336. He's getting up and walking for exercise. Past medical history, appointments, medications, allergies reviewed. Previous Medical History PAST MEDICAL HISTORY Diagnosis Date Breakthrough seizure (HCC) 11/14/2015 Developmental delay ALESSANDRA (generalized anxiety disorder) Major depressive disorder, recurrent episode, moderate (HCC) Meningoencephalitis age 6 EFREN (obstructive sleep apnea) Psychotic disorder (HCC) Substance abuse (HCC) Unspecified epilepsy without mention of intractable epilepsy Previous Surgical History PAST SURGICAL HISTORY Procedure Laterality Date CRNEC/CRX IMPLTJ NSTIM ELTRD CERE CORTICAL 01/2003 S VNS GENERATOR MODEL 102 2009 SEPTOPLASTY Family History FAMILY HISTORY Problem Relation Age of Onset No Ocular Disease Father No Ocular Disease Mother Cancer Mother leukemia Diabetes Maternal Uncle Patient Allergies ALLERGIES Allergen Reactions Aspartame Mental Status Change Triggers seizures Caramel Unknown Carbon Dioxide Other: See Comments Carbonation is a seizure trigger Ingrezza [Valbenazi* Hives Monosodium Glutamat* Unknown Topiramate Mental Status Change Pt states he experienced hallucinations Current Medications Current Outpatient Medications on File Prior to Visit Medication Sig pantoprazole DR (PROTONIX) 40 mg tablet Take 1 tablet by mouth daily before breakfast. Take on empty stomach, 1/2 hr before meal. lacosamide (VIMPAT) 150 mg tab Take 2 tablets by mouth twice daily for 90 days. LYBALVI 20-10 mg tablet Take 1 tablet by mouth once daily. semaglutide (OZEMPIC) 0.25 mg or 0.5 mg(2 mg/1.5 mL) pen Inject 0.25 mg subcutaneously one time a week. zonisamide (ZONEGRAN) 100 mg capsule Take 2 capsules by mouth twice daily. LORazepam (ATIVAN) 1 mg tablet TAKE 1.2 (0.5 mg) TABLET BY MOUTH NEEDED FOR seizures lasting more THAN THREE minutes/seizure cluster. MAY REPEAT in TWO hours. DO not exceed TWO in 24 hours. acetaminophen (TYLENOL) 325 mg tablet Take 2 tablets by mouth every 6 hours as needed for Pain. DULoxetine (CYMBALTA) 30 mg capsule Take 1 capsule by mouth once daily. hydrOXYzine HCl (ATARAX) 50 mg tablet Take 1 tablet by mouth every 8 hours as needed. No current facility-administered medications on file prior to visit. Social History Social History Tobacco Use Smoking status: Some Days Packs/day: 1.50 Years: 6.00 Pack years: 9.00 Types: Cigarettes Smokeless tobacco: Former Types: Snuff, Chew Substance Use Topics Alcohol use: No EXAM: There were no vitals taken for this visit. General Appearance: Well appearing, alert, in no acute distress, well-hydrated, well nourished. and Morbidly obese. Health Maintenance List HEPATITIS B(1 of 3 - 3-dose series) Never done COVID-19 VACCINE(1) Never done DTAP,TDAP,TD(1 - Tdap) Never done INFLUENZA(Season Ended) due on 04/05/2023 PNEUMOCOCCAL(3 - PPSV23 if available, else PCV20) due on 02/08/2057 HEPATITIS C SCREENING Completed HIV SCREENING Completed Data reviewed Weight graph ASSESSMENT/PLAN: 1. Morbid obesity with BMI of 50.0-59.9, adult (HCC) - ICD9: 278.01, V85.43, ICD10: E66.01, Z68.43 Weight decreasing - Behavioral intervention; continue lifestyle and diet Follow up in 1 month for accountability and to monitor progress Andre Jimenez MD documented in this encounter [facility] 12-10-2022 Miscellaneous Notes OK to refill as ordered Andre Jimenez MD Patient has been identified by name and date of : Yes Requested Prescriptions Pending Prescriptions Disp Refills pantoprazole DR (PROTONIX) 40 mg tablet 90 tablet 3 Sig: Take 1 tablet by mouth daily before breakfast. Take on empty stomach, 1/2 hr before meal. RX INSTRUCTIONS: Patient aware RX will be sent to pharmacy. No need to notify patient. Patient last office visit: 11/09/22 Patient next office visit: 12/13/22 Natasha Moreno MA documented in this encounter [facility] 12-10-2022 Miscellaneous Notes Appt on 12/14 cancelled. Pt notified via Trunity[employer]. Amanda Harper Ma documented in this encounter [facility] 12-03-2022 Miscellaneous Notes The following approved medication requests have been transmitted electronically. Requested Prescriptions Signed Prescriptions Disp Refills lacosamide (VIMPAT) 150 mg tab 360 tablet 0 Sig: Take 2 tablets by mouth twice daily for 90 days. Authorizing Provider: VANDANA FAGAN PA-C documented in this encounter [facility] 11-22-2022 Miscellaneous Notes TC to pt. Left a detailed message on a secure line with updates. Tala Carrion LPN Pa denied medicaid will not cover this for weight loss. Reviewed medicaid formulary they do not cover any medication for weight loss. Patient will have to pay out of pocket for any weight loss medication or use goodrx coupon Teresa Mejias Ma Pt send [employer] message stating that he needs a PA on the ozempic. Please advise. Amanda Harper Ma documented in this encounter [facility] 11-19-2022 Miscellaneous Notes See phone note 11/19/22. PA notification sent to PA nurse to start. Amanda Harper Ma documented in this encounter [facility] 11-09-2022 Note HNO ID: [id number] Author: Andre Jimenez MD Service: ? Author Type: Physician Type: Progress Notes Filed: 11/09/2022 10:26 AM Note Text: Chief Complaint Patient presents with: Physical HPI Ruben Winter is a 32 year old male who presents here today for a Wellness visit and to discuss weight loss. Pt here today with his father, Daryl for a Wellness visit. Pt has not been seen since 2019 and is considered new. Smokes 1 ppd. Is trying to cut back. Denies any chest pains, dizziness, or SOB. Admits to some chest pains when going up the stair. The pain last about 5 minutes. He states that when he eats ice cream he has chest pains. Denies any urinary issues. Does have issues with constipation off and on. Does not take any medication for constipation. He dose get up 2-3 x a night to urinate. Taking Pantoprazole 40 mg once daily. Obesity: Father reports that pt has put on weight. He's not very active and is fairly lethargic. Would like pt to start medication to help with weight loss. Discussed Ozempic and if this is a possible option. Would prefer to avoid medications that may interract with seizure medication. He does go up and down stairs 3 x a day otherwise no exercise. He has been trying to watch his diet recently, watch sugar and starches. He does get SOB with exertion. He thinks lifestyle and psych meds are causing weight gain. He is eating fruits and vegetables. He states he has trouble getting off the couch due to getting sucked into the couch and hard to get out . He has switched over to sugar free drinks like sparkling water. Denies drinking pop. He states he does get up in the middle of the night and eats cereal. He drinks protein shakes. He lost about 60 lbs in 2017 so he knows how to lose the weight. He has a personal community education coordinator that is a friend of the family and they will see about working with her on healthy diet. Denies eating much chips, mostly cereal like honey bunches of oats. Epilepsy: Follows with Dr. Tresa Flowers for epilepsy. Pt on current regimen of Ativan 1 mg prn, Lacosamide 150 mg once daily and Zonisadmide 100 mg once daily. Psych: Follows with Andre Celestin CNP for ALESSANDRA and depression. Pt is on current regimen of Cymbalta 30 mg once daily, Ativan 1 mg prn (seizures) and Lybalvi 20-10 mg once daily. Sleeping ok at night, he states he has trouble staying asleep, does nap through the day. Past medical history, appointments, medications, allergies reviewed. Previous Medical History PAST MEDICAL HISTORY Diagnosis Date Breakthrough seizure (HCC) 11/14/2015 Developmental delay ALESSANDRA (generalized anxiety disorder) Major depressive disorder, recurrent episode, moderate (HCC) Meningoencephalitis age 6 EFREN (obstructive sleep apnea) Psychotic disorder (HCC) Substance abuse (HCC) Unspecified epilepsy without mention of intractable epilepsy Previous Surgical History PAST SURGICAL HISTORY Procedure Laterality Date CRNEC/CRX IMPLTJ NSTIM ELTRD CERE CORTICAL 01/2003 S VNS GENERATOR MODEL 102 2009 SEPTOPLASTY Family History FAMILY HISTORY Problem Relation Age of Onset No Ocular Disease Father No Ocular Disease Mother Cancer Mother leukemia Diabetes Maternal Uncle Patient Allergies ALLERGIES Allergen Reactions Aspartame Mental Status Change Triggers seizures Caramel Unknown Carbon Dioxide Other: See Comments Carbonation is a seizure trigger Ingrezza [Valbenazi* Hives Monosodium Glutamat* Unknown Topiramate Mental Status Change Pt states he experienced hallucinations Current Medications Current Outpatient Medications on File Prior to Visit Medication Sig zonisamide (ZONEGRAN) 100 mg capsule Take 2 capsules by mouth twice daily. LORazepam (ATIVAN) 1 mg tablet TAKE 1.2 (0.5 mg) TABLET BY MOUTH NEEDED FOR seizures lasting more THAN THREE minutes/seizure cluster. MAY REPEAT in TWO hours. DO not exceed TWO in 24 hours. zonisamide (ZONEGRAN) 100 mg capsule Take 2 capsules by mouth twice daily. lacosamide (VIMPAT) 150 mg tab Take 2 tablets by mouth twice daily for [address] (PROTONIX) 40 mg tablet Take 1 tablet by mouth daily before breakfast. Take on empty stomach, 1/2 hr before meal. olanzapine-samidorphan (LYBALVI) 15-10 mg tablet Take 1 tablet by mouth once daily. acetaminophen (TYLENOL) 325 mg tablet Take 2 tablets by mouth every 6 hours as needed for Pain. DULoxetine (CYMBALTA) 30 mg capsule Take 1 capsule by mouth once daily. hydrOXYzine HCl (ATARAX) 50 mg tablet Take 1 tablet by mouth every 8 hours as needed. loratadine (CLARITIN) 10 mg tablet Take 1 tablet by mouth as needed. No current facility-administered medications on file prior to visit. Social History Social History Tobacco Use Smoking status: Some Days Packs/day: 1.50 Years: 6.00 Pack years: 9.00 Types: Cigarettes Smokeless tobacco: Former Types: Snuff, Chew Substance Use Topics Alcohol use (more content not included)... [facility] 11-09-2022 Instructions Amanda Harper [place] - 11/09/2022 10:10 AM EDT Recommend walking twice a day 5-10 minutes and increase minutes as able. Recommend getting up to 30 minutes to 1 hour of walking eventually. Recommend watching diet and exercise. Continue with fruits, vegetables, plain oatmeal, overnight oats, plain shredded wheat or plain cherrios. You can add fruit, nuts, honey to your oatmeal. Nuts and fruit good snacks as well. Follow with your community education coordinator friend to work on diet. Injection of Ozempic can go to the stomach, upper arm, and/or thigh. Most common and easiest area is the stomach. documented in this encounter [facility] 11-09-2022 History of Present illness Narrative Chief Complaint Patient presents with: Physical HPI Ruben Winter is a 32 year old male who presents here today for a Wellness visit and to discuss weight loss. Pt here today with his father, Daryl for a Wellness visit. Pt has not been seen since 2019 and is considered new. Smokes 1 ppd. Is trying to cut back. Denies any chest pains, dizziness, or SOB. Admits to some chest pains when going up the stair. The pain last about 5 minutes. He states that when he eats ice cream he has chest pains. Denies any urinary issues. Does have issues with constipation off and on. Does not take any medication for constipation. He dose get up 2-3 x a night to urinate. Taking Pantoprazole 40 mg once daily. Obesity: Father reports that pt has put on weight. He's not very active and is fairly lethargic. Would like pt to start medication to help with weight loss. Discussed Ozempic and if this is a possible option. Would prefer to avoid medications that may interract with seizure medication. He does go up and down stairs 3 x a day otherwise no exercise. He has been trying to watch his diet recently, watch sugar and starches. He does get SOB with exertion. He thinks lifestyle and psych meds are causing weight gain. He is eating fruits and vegetables. He states he has trouble getting off the couch due to getting sucked into the couch and hard to get out . He has switched over to sugar free drinks like sparkling water. Denies drinking pop. He states he does get up in the middle of the night and eats cereal. He drinks protein shakes. He lost about 60 lbs in 2017 so he knows how to lose the weight. He has a personal community education coordinator that is a friend of the family and they will see about working with her on healthy diet. Denies eating much chips, mostly cereal like honey bunches of oats. Epilepsy: Follows with Dr. Tresa Flowers for epilepsy. Pt on current regimen of Ativan 1 mg prn, Lacosamide 150 mg once daily and Zonisadmide 100 mg once daily. Psych: Follows with Andre Celestin CNP for ALESSANDRA and depression. Pt is on current regimen of Cymbalta 30 mg once daily, Ativan 1 mg prn (seizures) and Lybalvi 20-10 mg once daily. Sleeping ok at night, he states he has trouble staying asleep, does nap through the day. Past medical history, appointments, medications, allergies reviewed. Previous Medical History PAST MEDICAL HISTORY Diagnosis Date Breakthrough seizure (HCC) 11/14/2015 Developmental delay LAESSANDRA (generalized anxiety disorder) Major depressive disorder, recurrent episode, moderate (HCC) Meningoencephalitis age 6 EFREN (obstructive sleep apnea) Psychotic disorder (HCC) Substance abuse (HCC) Unspecified epilepsy without mention of intractable epilepsy Previous Surgical History PAST SURGICAL HISTORY Procedure Laterality Date CRNEC/CRX IMPLTJ NSTIM ELTRD CERE CORTICAL 01/2003 S VNS GENERATOR MODEL 102 2009 SEPTOPLASTY Family History FAMILY HISTORY Problem Relation Age of Onset No Ocular Disease Father No Ocular Disease Mother Cancer Mother leukemia Diabetes Maternal Uncle Patient Allergies ALLERGIES Allergen Reactions Aspartame Mental Status Change Triggers seizures Caramel Unknown Carbon Dioxide Other: See Comments Carbonation is a seizure trigger Ingrezza [Valbenazi* Hives Monosodium Glutamat* Unknown Topiramate Mental Status Change Pt states he experienced hallucinations Current Medications Current Outpatient Medications on File Prior to Visit Medication Sig zonisamide (ZONEGRAN) 100 mg capsule Take 2 capsules by mouth twice daily. LORazepam (ATIVAN) 1 mg tablet TAKE 1.2 (0.5 mg) TABLET BY MOUTH NEEDED FOR seizures lasting more THAN THREE minutes/seizure cluster. MAY REPEAT in TWO hours. DO not exceed TWO in 24 hours. zonisamide (ZONEGRAN) 100 mg capsule Take 2 capsules by mouth twice daily. lacosamide (VIMPAT) 150 mg tab Take 2 tablets by mouth twice daily for [address] (PROTONIX) 40 mg tablet Take 1 tablet by mouth daily before breakfast. Take on empty stomach, 1/2 hr before meal. olanzapine-samidorphan (LYBALVI) 15-10 mg tablet Take 1 tablet by mouth once daily. acetaminophen (TYLENOL) 325 mg tablet Take 2 tablets by mouth every 6 hours as needed for Pain. DULoxetine (CYMBALTA) 30 mg capsule Take 1 capsule by mouth once daily. hydrOXYzine HCl (ATARAX) 50 mg tablet Take 1 tablet by mouth every 8 hours as needed. loratadine (CLARITIN) 10 mg tablet Take 1 tablet by mouth as needed. No current facility-administered medications on file prior to visit. Social History Social History Tobacco Use Smoking status: Some Days Packs/day: 1.50 Years: 6.00 Pack years: 9.00 Types: Cigarettes Smokeless tobacco: Former Types: Snuff, Chew Substance Use Topics Alcohol use: No EXAM: BP 120/80 Pulse 90 Resp 20 Ht 175.3 cm (5' 9 ) Wt (!) 155.2 kg (342 lb 1.6 oz) BMI 50.52 kg/m General Appearance: Well appearing, alert, in no acute distress, well-hydrated, well nourished. and Morbidly obese. Lungs: Lungs clear to auscultation. No wheezing, rhonchi, rales.. Heart: RRR without murmur, gallop, or rubs. No ectopy. Health Maintenance List HEPATITIS B(1 of 3 - 3-dose series) Never done COVID-19 VACCINE(1) Never done DTAP,TDAP,TD(1 - Tdap) Never done PNEUMOCOCCAL(2 - PPSV23 if available, else PCV20) due on 02/07/2016 INFLUENZA(Season Ended) due on 04/05/2023 HEPATITIS C SCREENING Completed HIV SCREENING Completed Data reviewed Weight graph ASSESSMENT/PLAN: 1. Wellness examination - ICD9: V70.0, ICD10: Z00.00 (primary diagnosis) - Counseled on healthy diet and regular exercise - Discussed need for and benefit of weight loss. BMI 50.52 kg/(m^2) - Smoking cessation encouraged; discussed risks to health and quitting strategies. Patient is not ready to quit - Follow up for annual exam in one year 2. Morbid obesity with BMI of 50.0-59.9, adult (HCC) - ICD9: 278.01, V85.43, ICD10: E66.01, Z68.43 Newly diagnosed - Add Ozempic Recommend healthy diet and exercise 3. Partial epilepsy with impairment of consciousness (HCC) - ICD9: 345.40, ICD10: G40.209 Continue current medications. Follow with Neuro 4. Tobacco abuse - ICD9: 305.1, ICD10: Z72.0 - Cessation encouraged. - Physiologic and physical aspects of tobacco addiction as well as strategies for quitting were discussed. - Counseling was given focusing on the harmful effects of this addiction especially given the patient's medical condition(s) which will be worsened because of the chemicals in tobacco. - Counseling was given 3-4 minutes. 5. Disorganized schizophrenia (HCC) - ICD9: 295.10, ICD10: F20.1 Continue current medications. Follow with Psychiatrist Follow up in 1 month. Will notify of lab results. I agree with the Chief Complaint, ROS, and Past Histories independently gathered by the clinical whanau support worker and the remaining scribed note accurately describes my personal service to the patient. Andre Jimenez MD The documentation for this note was completed by Amanda Harper Ma acting as scribe for Andre Jimenez MD. November 09, 2022 9:53 AM. Amanda Harper Ma documented in this encounter [facility] 11-05-2022 Miscellaneous Notes Spoke with pt's father, Daryl and scheduled pt on 11/09/22 @ 10:00 am with PCP for Physical and to discuss weight gain. Pt's father discussing possible injectable medication such as Ozempic. Has to be careful with current meds/seizures. Trinity Gibson Ma Held 11/06/22 @ 2:20 and 2:40 since pt has not been seen since 2019. Will call Father to discuss appt. Trinity Gibson Ma Asked pt's father what day/time works to schedule. Trinity Gibson Ma Notified pt of message below from PCP. Wait response. Trinity Gibson Ma An in office exam would be preferable. Andre Jimenez MD Ok to do video visit or do you want to do in office in order to get pt weight? Amanda Harper Ma documented in this encounter [facility] 07-31-2022 Miscellaneous Notes Patient's request for medication is as follows: Requested Prescriptions Signed Prescriptions Disp Refills zonisamide (ZONEGRAN) 100 mg capsule 360 capsule 1 Sig: Take 2 capsules by mouth twice daily. Authorizing Provider: MILADIS TREVIZO Approved the above prescription and sent electronically to [facility] pharmacy in [place], [place]. Miladis Trevizo APRN.ENRICHMENT TEACHER documented in this encounter [facility] 07-31-2022 Miscellaneous Notes Patient's request for medication is as follows: Requested Prescriptions Pending Prescriptions Disp Refills LORazepam (ATIVAN) 1 mg tablet 20 tablet 2 Sig: TAKE 1.2 (0.5 mg) TABLET BY MOUTH NEEDED FOR seizures lasting more THAN THREE minutes/seizure cluster. MAY REPEAT in TWO hours. DO not exceed TWO in 24 hours. Approved the above prescription and sent electronically to [facility] pharmacyin [place], [place].OARRS checked and approved.Token [id number].. Miladis Trevizo APRN.ENRICHMENT TEACHER documented in this encounter [facility] 07-31-2022 Miscellaneous Notes Patient's request for medication is as follows: Requested Prescriptions Signed Prescriptions Disp Refills zonisamide (ZONEGRAN) 100 mg capsule 360 capsule 1 Sig: Take 2 capsules by mouth twice daily. Authorizing Provider: MILADIS TREVIZO Approved the above prescriptions and sent electronically to [facility] pharmacy in [place], [place]. Miladis Trevizo APRN.EDMOND documented in this encounter [facility] 07-31-2022 Miscellaneous Notes Forwarded for refill of ZNS. Modesta Guthrie RN documented in this encounter [facility] 06-11-2022 Miscellaneous Notes The following approved medication requests have been transmitted electronically. Requested Prescriptions Signed Prescriptions Disp Refills lacosamide (VIMPAT) 150 mg tab 360 tablet 1 Sig: Take 2 tablets by mouth twice daily for 180 days. Authorizing Provider: JOSE G GUTIERREZ APRN.CNP documented in this encounter [facility] 12-25-2021 Miscellaneous Notes The following approved medication requests have been transmitted electronically. Signed Prescriptions Disp Refills pantoprazole DR (PROTONIX) 40 mg tablet 90 tablet 3 Sig: Take 1 tablet by mouth daily before breakfast. Take on empty stomach, 1/2 hr before meal. CJ: No Authorizing Provider: ANDRE JIMENEZ Ma OK to refill as ordered Andre Jimenez MD Patient phones requesting refills as follows: Pending Prescriptions Disp Refills PANTOPRAZOLE 40 MG TABLET,DELAYED RELEASE 90 tablet 3 Sig: Take 1 tablet by mouth daily before breakfast. Take on empty stomach, 1/2 hr before meal. CJ: No RYANNE-06/01/19 Labs-10/23/18 NOV-none med filled 6/15/21 Please review and advise. Tala Carrion LPN documented in this encounter [facility] 12-12-2021 History of Present illness Narrative VIRTUAL VISIT PROGRESS NOTE This is a virtual visit using Qellot video visit. It required patient-provider interaction for the medical decision making as documented below. Ruben Winter is a 31 year old male seen for focal epiepsy, EFREN. HISTORY REVIEWED (electronic chart updated): PAST MEDICAL HISTORY Diagnosis Date Breakthrough seizure (HCC) 11/14/2015 Developmental delay ALESSANDRA (generalized anxiety disorder) Major depressive disorder, recurrent episode, moderate (HCC) Meningoencephalitis age 6 EFREN (obstructive sleep apnea) Psychotic disorder (HCC) Substance abuse (HCC) Unspecified epilepsy without mention of intractable epilepsy PAST SURGICAL HISTORY Procedure Laterality Date CRANIOTOMY,NEUROELEC,CORTICAL 01/2003 S VNS GENERATOR MODEL 102 2009 SEPTOPLASTY FAMILY HISTORY Problem Relation Age of Onset No Ocular Disease Father No Ocular Disease Mother Cancer Mother leukemia Diabetes Maternal Uncle Social History Tobacco Use Smoking status: Current Some Day Smoker Packs/day: 1.50 Years: 6.00 Pack years: 9.00 Types: Cigarettes Smokeless tobacco: Former User Types: Snuff, Chew Substance Use Topics Alcohol use: No Drug use: Not on file Current Outpatient Medications Medication Sig lacosamide (VIMPAT) 150 mg tab Take 2 tablets by mouth twice daily for 180 days. zonisamide (ZONEGRAN) 100 mg capsule Take 2 capsules by mouth twice daily. LORazepam (ATIVAN) 1 mg tablet TAKE ONE TABLET BY MOUTH NEEDED FOR seizures lasting more THAN THREE minutes/seizure cluster. MAY REPEAT in TWO hours. DO not exceed TWO in [address] (PROTONIX) 40 mg tablet Take 1 tablet by mouth daily before breakfast. Take on empty stomach, 1/2 hr before meal. cariprazine (VRAYLAR) 1.5 mg capsule Take 1 capsule by mouth daily at bedtime. acetaminophen (TYLENOL) 325 mg tablet Take 2 tablets by mouth every 6 hours as needed for Pain. VRAYLAR 3 mg cap Take 1 capsule by mouth daily after breakfast. DULoxetine (CYMBALTA) 30 mg capsule Take 1 capsule by mouth once daily. hydrOXYzine HCl (ATARAX) 50 mg tablet Take 1 tablet by mouth every 8 hours as needed. loratadine (CLARITIN) 10 mg tablet Take 1 tablet by mouth as needed. No current facility-administered medications for this visit. ALLERGIES Allergen Reactions Aspartame Mental Status Change Triggers seizures Caramel Unknown Carbon Dioxide Other: See Comments Carbonation is a seizure trigger Ingrezza [Valbenazi* Hives Monosodium Glutamat* Unknown Topiramate Mental Status Change Pt states he experienced hallucinations PHYSICAL EXAMINATION: VIDEO EXAM: (if completed, performed via video enabled technology) NEUROLOGIC: no obvious deficit ASSESSMENT/PLAN: Problem List Items Addressed This Visit Partial epilepsy with impairment of consciousness (HCC) Overview Classification Summary Right Focal Epilepsy Seizures: 1. Bilaterally Asymmetric Tonic Seizure -> Generalized Tonic-Clonic Seizure 2. 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 Pathology: 2016 nonspecific EEG Classification SEEG 09/2015 Interictal: 1. Continuous Slow, Focal Right Angular Gyrus 2. Doron, Focal Right Angular Gyrus 3. Doron, Focal Right Amygdala and Hippocampus 4. Doron, Focal Right Superior Temporal Sulcus 5. Doron, Focal Right Collateral Sulcus Ictal: 1. EEG: EEG Seizure, Focal Right Angular Gyrus Seizure: Bilaterally Asymmetric Tonic Seizure -> Generalized Tonic-Clonic Seizure 2. EEG: EEG Seizure, Focal Right Angular Gyrus Seizure: Bilaterally Asymmetric Tonic Seizure 3. EEG: EEG Seizure, Focal Right Amygdala and Hippocampus Seizure: Bilaterally Asymmetric Tonic Seizure 4. EEG: EEG Seizure, Focal Right Angular Gyrus Seizure: No Clinical Signs 5. EEG: EEG Seizure, Focal Right Cuneus Seizure: No Clinical Signs 6. 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 He underwent invasive evaluation and right frontal lobectomy in 2002 with transient improvement in seizure control. Also, he had a VNS implanted in 2008 with a little benefit. VEEG showed right temporal and parietal interictal epileptiform discharges and non-localizable or right temporal ictal pattern. As part of his presurgical evaluation SPECT showed right mid to lateral temporal hyperperfusion with secondary activation of the posterior dorsal frontal region and PET showed right temporal ( lateral and mesial) hypometabolism. Also, MRI brain demonstrated hyperintensity and abnormal morphology in the right dorsal mid superior temporal gyrus and inferior parietal lobule. He was admitted for SEEG in the period 09/05/2015-09/13/2015. 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 Patient pushed the seizure alarm multiples times because of inconsistent symptoms like dizzines, nausea, feeling weird in which no EEG changes were noted. ( 1-3E, 4-6A, 7-9E, 10-11A). One typical seizure was captured with asymmetric tonic and GTC arised from right angular gyrus (5PG) and 5 typical seizures (13P-17P) of asymetric tonic semiology without GTC arose from right angular gyrus. One typical seizure of asymmetric tonic semiolgy arose from right hippocampus and amygdala. No clinical signs seizures were recorded from the angular gyrus and right cuneus (O1-3). Also one was noted in the left hippocampus and middle temporal gyrus (U'). SEEG result was discussed at noon [facility] on 09/12/2015 in the presence of , , Dr. Ng, , Dr Reyes, and . It was the consensus of the group that the current epileptogenic zone includes the right angular gyrus (W 6-9) and right cuneus . It was also considered that the lesion is more extensive than it was described in the MRI report and colored in putnam images. The plan is to do a Right Parietal/Occipital resection including the angular gyrus and part of the lesion. Post op seizures: gets an aura and then head left and GTC 03/2019, fall 2019, Jun 2021. EEG post op 04/2019 showed right temporal SW Under care of psychiatrist. Successfully tapered off PB in 2018. Started medical marijuana last week. Tremors, has reduced caffeine. Dad wonders if due to medications. Patient feels like he's tremoring but dad doesn't see if. Take a lorazepam, 2-3 times per week. Patient views these as auras. Has gained weight. Just transitioned to a new antipsychotic containing olanzapine. Current Assessment & Plan Assessment: 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 Polytherapy with LCM and ZSM. Uses medical marijuana. Obesity morbid Psychiatric disorder - on new medication containing olanzapine. PLAN: Continue current meds. Continue not to drive. Nutrition consult. Return annually. Relevant Medications lacosamide (VIMPAT) 150 mg tab zonisamide (ZONEGRAN) 100 mg capsule LORazepam (ATIVAN) 1 mg tablet Other Relevant Orders CONSULT TO NUTRITION THERAPY Other Visit Diagnoses Morbid obesity (HCC) - Primary Relevant Orders CONSULT TO NUTRITION THERAPY I spent a total of 20 minutes on the date of the service which included preparing to see the patient, [id number] patient care, completing clinical documentation, counseling and educating the patient/family/caregiver and ordering medications, tests, or procedures Angie Flowers DO documented in this encounter [facility] 10-27-2021 Miscellaneous Notes The following approved medication requests have been transmitted electronically. Refused Prescriptions Disp Refills LORazepam (ATIVAN) 1 mg tablet 20 tablet 2 Sig: TAKE ONE TABLET BY MOUTH NEEDED FOR seizures lasting more THAN THREE minutes/seizure cluster. MAY REPEAT in TWO hours. DO not exceed TWO in 24 hours. CHEMO Class: C-IV CJ: No Refused By: EMELIA HARDING Reason for Refusal: Records indicate that there is a valid prescription at the pharmacy Reason for Refusal Comment: 2 refills available Emelia Harding APRN.CNP documented in this encounter [facility] documented as of this encounter (statuses as of 12/12/2021) [facility] History of Past illness Narrative* Problem Noted Date Resolved Date Breakthrough seizure 11/14/2015 12/12/2021 Seizures 06/25/2013 12/12/2021 Epilepsy 11/23/2005 12/12/2021 Other forms of epilepsy and recurrent seizures 1 09/11/2004 12/20/2005 Epistaxis 07/11/2005 01/31/2010 documented as of this encounter (statuses as of 12/25/2021) [facility] History of Past illness Narrative* Problem Noted Date Resolved Date Breakthrough seizure 11/14/2015 12/12/2021 Seizures 06/25/2013 12/12/2021 Epilepsy 11/23/2005 12/12/2021 Other forms of epilepsy and recurrent seizures 1 09/11/2004 12/20/2005 Epistaxis 07/11/2005 01/31/2010 documented as of this encounter (statuses as of 06/11/2022) [facility] History of Past illness Narrative* Problem Noted Date Resolved Date Breakthrough seizure 11/14/2015 12/12/2021 Seizures 06/25/2013 12/12/2021 Epilepsy 11/23/2005 12/12/2021 Other forms of epilepsy and recurrent seizures 1 09/11/2004 12/20/2005 Epistaxis 07/11/2005 01/31/2010 documented as of this encounter (statuses as of 08/06/2022) [facility] History of Past illness Narrative* Problem Noted Date Resolved Date Breakthrough seizure 11/14/2015 12/12/2021 Seizures 06/25/2013 12/12/2021 Epilepsy 11/23/2005 12/12/2021 Other forms of epilepsy and recurrent seizures 1 09/11/2004 12/20/2005 Epistaxis 07/11/2005 01/31/2010 documented as of this encounter (statuses as of 11/05/2022) [facility] History of Past illness Narrative* Problem Noted Date Resolved Date Breakthrough seizure 11/14/2015 12/12/2021 Seizures 06/25/2013 12/12/2021 Epilepsy 11/23/2005 12/12/2021 Other forms of epilepsy and recurrent seizures 1 09/11/2004 12/20/2005 Epistaxis 07/11/2005 01/31/2010 documented as of this encounter (statuses as of 11/09/2022) [facility] History of Past illness Narrative* Problem Noted Date Resolved Date Breakthrough seizure 11/14/2015 12/12/2021 Seizures 06/25/2013 12/12/2021 Epilepsy 11/23/2005 12/12/2021 Other forms of epilepsy and recurrent seizures 1 09/11/2004 12/20/2005 Epistaxis 07/11/2005 01/31/2010 documented as of this encounter (statuses as of 11/19/2022) [facility] History of Past illness Narrative* Problem Noted Date Resolved Date Breakthrough seizure 11/14/2015 12/12/2021 Seizures 06/25/2013 12/12/2021 Epilepsy 11/23/2005 12/12/2021 Other forms of epilepsy and recurrent seizures 1 09/11/2004 12/20/2005 Epistaxis 07/11/2005 01/31/2010 documented as of this encounter (statuses as of 11/23/2022) [facility] History of Past illness Narrative* Problem Noted Date Resolved Date Breakthrough seizure 11/14/2015 12/12/2021 Seizures 06/25/2013 12/12/2021 Epilepsy 11/23/2005 12/12/2021 Other forms of epilepsy and recurrent seizures 1 09/11/2004 12/20/2005 Epistaxis 07/11/2005 01/31/2010 documented as of this encounter (statuses as of 12/04/2022) [facility] History of Past illness Narrative* Problem Noted Date Resolved Date Breakthrough seizure 11/14/2015 12/12/2021 Seizures 06/25/2013 12/12/2021 Epilepsy 11/23/2005 12/12/2021 Other forms of epilepsy and recurrent seizures 1 09/11/2004 12/20/2005 Epistaxis 07/11/2005 01/31/2010 documented as of this encounter (statuses as of 12/11/2022) [facility] History of Past illness Narrative* Problem Noted Date Resolved Date Breakthrough seizure 11/14/2015 12/12/2021 Seizures 06/25/2013 12/12/2021 Epilepsy 11/23/2005 12/12/2021 Other forms of epilepsy and recurrent seizures 1 09/11/2004 12/20/2005 Epistaxis 07/11/2005 01/31/2010 documented as of this encounter (statuses as of 12/11/2022) [facility] History of Past illness Narrative* Problem Noted Date Resolved Date Breakthrough seizure 11/14/2015 12/12/2021 Seizures 06/25/2013 12/12/2021 Epilepsy 11/23/2005 12/12/2021 Other forms of epilepsy and recurrent seizures 1 09/11/2004 12/20/2005 Epistaxis 07/11/2005 01/31/2010 documented as of this encounter (statuses as of 12/13/2022) [facility] History of Past illness Narrative* Problem Noted Date Resolved Date Breakthrough seizure 11/14/2015 12/12/2021 Seizures 06/25/2013 12/12/2021 Epilepsy 11/23/2005 12/12/2021 Other forms of epilepsy and recurrent seizures 1 09/11/2004 12/20/2005 Epistaxis 07/11/2005 01/31/2010 documented as of this encounter (statuses as of 01/28/2023) [facility] History of Past illness Narrative* Problem Noted Date Resolved Date Breakthrough seizure 11/14/2015 12/12/2021 Seizures 06/25/2013 12/12/2021 Epilepsy 11/23/2005 12/12/2021 Other forms of epilepsy and recurrent seizures 1 09/11/2004 12/20/2005 Epistaxis 07/11/2005 01/31/2010 documented as of this encounter (statuses as of 01/29/2023) [facility] History of Past illness Narrative* Problem Noted Date Diagnosed Date Resolved Date Breakthrough seizure 11/14/2015 022 Seizures 06/25/2013 12/12/2021 Epilepsy 11/23/2005 12/12/2021 Other forms of epilepsy and recurrent seizures 07/11/2005 12/20/2005 Epistaxis 07/11/2005 01/31/2010 documented as of this encounter (statuses as of 03/11/2023) [facility] History of Past illness Narrative* Problem Noted Date Diagnosed Date Resolved Date Breakthrough seizure 11/14/2015 022 Seizures 06/25/2013 12/12/2021 Epilepsy 11/23/2005 12/12/2021 Other forms of epilepsy and recurrent seizures 07/11/2005 12/20/2005 Epistaxis 07/11/2005 01/31/2010 documented as of this encounter (statuses as of 04/24/2023) [facility] History of Past illness Narrative* Problem Noted Date Resolved Date Other forms of epilepsy and recurrent seizures 1 09/11/2004 12/20/2005 Epistaxis 07/11/2005 01/31/2010 documented as of this encounter (statuses as of 10/27/2021) [facility] note* Diagnosis Partial epilepsy with impairment of consciousness (HCC) Localization-related (focal) (partial) epilepsy and epileptic syndromes with complex partial seizures, without mention of intractable epilepsy [facility] Diagnosis Morbid obesity (HCC)- Primary Morbid obesity Partial epilepsy with impairment of consciousness (HCC) Localization-related (focal) (partial) epilepsy and epileptic syndromes with complex partial seizures, without mention of intractable epilepsy * Assessment & Plan Note - Angie Flowers DO - 12/12/2021 1:04 PM EDT Associated Problem(s): Partial epilepsy with impairment of consciousness (HCC) Assessment: 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 Polytherapy with LCM and ZSM. Uses medical marijuana. Obesity morbid Psychiatric disorder - on new medication containing olanzapine. PLAN: Continue current meds. Continue not to drive. Nutrition consult. Return annually. documented in this encounter [facility] note* Diagnosis Partial epilepsy with impairment of consciousness (HCC) Localization-related (focal) (partial) epilepsy and epileptic syndromes with complex partial seizures, without mention of intractable epilepsy [facility] Diagnosis Wellness examination- Primary Morbid obesity with BMI of 50.0-59.9, adult (HCC) Morbid obesity Partial epilepsy with impairment of consciousness (HCC) Localization-related (focal) (partial) epilepsy and epileptic syndromes with complex partial seizures, without mention of intractable epilepsy Tobacco abuse Tobacco use disorder Disorganized schizophrenia (HCC) Disorganized schizophrenia, unspecified condition [facility] Diagnosis Partial epilepsy with impairment of consciousness (HCC) Localization-related (focal) (partial) epilepsy and epileptic syndromes with complex partial seizures, without mention of intractable epilepsy [facility] Diagnosis Morbid obesity with BMI of 50.0-59.9, adult (HCC)- Primary Morbid obesity [facility] Diagnosis Partial epilepsy with impairment of consciousness (HCC) Localization-related (focal) (partial) epilepsy and epileptic syndromes with complex partial seizures, without mention of intractable epilepsy [facility] Diagnosis Preseptal cellulitis- Primary Abscess of eyelid Intertrigo Other specified erythematous condition documented in this encounter [facility] Summary Purpose Family History No Family History Records FoundNo Family History Records FoundNo Family History Records FoundNo Family History Records Found Advance Directives No Advanced Directives Records FoundDocuments on File Type Date Recorded Patient Pricing Lead Expl anation Advance Directive(s) Advance Directive(s) 04/09/2017 4:46 PM Advance Directive(s) 02/29/2016 8:36 PM Advance Directive(s) 11/14/2015 2:47 PM Advance Directive(s) 11/08/2015 12:16 PM Advance Directive(s) 11/07/2015 2:28 PM Documents on File Type Date Recorded Patient Pricing Lead Expl anation Advance Directive(s) Advance Directive(s) 04/09/2017 4:46 PM Advance Directive(s) 02/29/2016 8:36 PM Advance Directive(s) 11/14/2015 2:47 PM Advance Directive(s) 11/08/2015 12:16 PM Advance Directive(s) 11/07/2015 2:28 PM Reason for Referral Specialty Diagnoses / Procedures Referred By Contac t Referred To Contact Nutrition Diagnoses Partial epilepsy with impairment of consciousness (HCC) Morbid obesity (HCC) Procedures CONSULT TO NUTRITION THERAPY OFFICE/OUTPATIENT [facility] 60-74 MINUTES Angie Hernandez, DO [address] [place] [address] Referral ID Status Reason Start Date Expiration Date Visits Requested Visits Authorized [id number] Authorized PCP Requested Referral 12/12/2021 12/12/2022 1 1 Additional Source Comments (unrecognized sect ion and content) No Status Records FoundNo Status Records FoundNo Status Records FoundNo Status Records Found INFORMATION SOURCE (unrecogn ized section and content) DATE CREATED AUTHOR AUTHOR'S ORGANIZ ATION 12/30/2020 [facility] DATE CREATED AUTHOR AUTHOR'S ORGANIZ ATION 07/22/2023 [facility] DATE CREATED AUTHOR AUTHOR'S ORGANIZ ATION 08/01/2023 [facility] Source Comments (unrecognize d section and content) In the event this informatio n is protected by the Federal Confidentiality of Alcohol and Drug Abuse Patient Records regulations: The Federal rules restrict any use of the information to criminally investigate or prosecute any alcohol or drug abuse patient.[facility] event this information is protected by the Federal Confidentiality of Alcohol and Drug Abuse Patient Records regulations: The Federal rules restrict any use of the information to criminally investigate or prosecute any alcohol or drug abuse patient.[facility] the event this information is protected by the Federal Confidentiality of Alcohol and Drug Abuse Patient Records regulations: The Federal rules restrict any use of the information to criminally investigate or prosecute any alcohol or drug abuse patient.[facility] the event this information is protected by the Federal Confidentiality of Alcohol and Drug Abuse Patient Records regulations: The Federal rules restrict any use of the information to criminally investigate or prosecute any alcohol or drug abuse patient.[facility] the event this information is protected by the Federal Confidentiality of Alcohol and Drug Abuse Patient Records regulations: The Federal rules restrict any use of the information to criminally investigate or prosecute any alcohol or drug abuse patient.[facility] the event this information is protected by the Federal Confidentiality of Alcohol and Drug Abuse Patient Records regulations: The Federal rules restrict any use of the information to criminally investigate or prosecute any alcohol or drug abuse patient.[facility] the event this information is protected by the Federal Confidentiality of Alcohol and Drug Abuse Patient Records regulations: The Federal rules restrict any use of the information to criminally investigate or prosecute any alcohol or drug abuse patient.[facility] the event this information is protected by the Federal Confidentiality of Alcohol and Drug Abuse Patient Records regulations: The Federal rules restrict any use of the information to criminally investigate or prosecute any alcohol or drug abuse patient.[facility] the event this information is protected by the Federal Confidentiality of Alcohol and Drug Abuse Patient Records regulations: The Federal rules restrict any use of the information to criminally investigate or prosecute any alcohol or drug abuse patient.[facility] the event this information is protected by the Federal Confidentiality of Alcohol and Drug Abuse Patient Records regulations: The Federal rules restrict any use of the information to criminally investigate or prosecute any alcohol or drug abuse patient.[facility] the event this information is protected by the Federal Confidentiality of Alcohol and Drug Abuse Patient Records regulations: The Federal rules restrict any use of the information to criminally investigate or prosecute any alcohol or drug abuse patient.[facility] the event this information is protected by the Federal Confidentiality of Alcohol and Drug Abuse Patient Records regulations: The Federal rules restrict any use of the information to criminally investigate or prosecute any alcohol or drug abuse patient.[facility] the event this information is protected by the Federal Confidentiality of Alcohol and Drug Abuse Patient Records regulations: The Federal rules restrict any use of the information to criminally investigate or prosecute any alcohol or drug abuse patient.[facility] the event this information is protected by the Federal Confidentiality of Alcohol and Drug Abuse Patient Records regulations: The Federal rules restrict any use of the information to criminally investigate or prosecute any alcohol or drug abuse patient.[facility] the event this information is protected by the Federal Confidentiality of Alcohol and Drug Abuse Patient Records regulations: The Federal rules restrict any use of the information to criminally investigate or prosecute any alcohol or drug abuse patient.[facility] the event this information is protected by the Federal Confidentiality of Alcohol and Drug Abuse Patient Records regulations: The Federal rules restrict any use of the information to criminally investigate or prosecute any alcohol or drug abuse patient.[facility] the event this information is protected by the Federal Confidentiality of Alcohol and Drug Abuse Patient Records regulations: The Federal rules restrict any use of the information to criminally investigate or prosecute any alcohol or drug abuse patient.[facility] the event this information is protected by the Federal Confidentiality of Alcohol and Drug Abuse Patient Records regulations: The Federal rules restrict any use of the information to criminally investigate or prosecute any alcohol or drug abuse patient.[facility] the event this information is protected by the Federal Confidentiality of Alcohol and Drug Abuse Patient Records regulations: The Federal rules restrict any use of the information to criminally investigate or prosecute any alcohol or drug abuse patient.[facility] the event this information is protected by the Federal Confidentiality of Alcohol and Drug Abuse Patient Records regulations: The Federal rules restrict any use of the information to criminally investigate or prosecute any alcohol or drug abuse patient.[facility] Reason for Visit (unrecogniz ed section and content) Reason Comments Follow Up Reason Onset Date Comments Refill Request 12/22/2021 Reason Onset Date Comments Refill Request 06/11/2022 Reason Onset Date Comments Refill Request 07/30/2022 Reason Comments Physical Reason Comments Insurance Authorization Reason Comments Refill Request Reason Onset Date Comments Refill Request 12/10/2022 Reason Comments Weight Problem Reason Onset Date Comments Refill Request 01/28/2023 Reason Comments Medication Problem Refill Requested on Discontinued Medication Reason Comments Rash Left eye swollem, ir ritated, Left armpit rash x 2 days Cough Chest congestion cou gh x 3 weeks Care Teams (unrecognized sec tion and content) Internet Assessor Relationship Specialty Start Date End Date Andre Jimenez MD [address] [place], [place] [id number] PCP - General Family Practice 12/13/15 Internet Assessor Relationship Specialty Start Date End Date Andre Jimenez MD [address] [place], [place] [id number] PCP - General Family Medicine 12/13/15 Internet Assessor Relationship Specialty Start Date End Date Andre Jimenez MD [address] [place], [place] [id number] PCP - General Family Medicine 12/13/15 Internet Assessor Relationship Specialty Start Date End Date Andre Jimenez MD [address] [place] [address] PCP - General Family Medicine 12/13/15 Internet Assessor Relationship Specialty Start Date End Date Andre Jimenez MD [address] [place] [address] PCP - General Family Medicine 12/13/15 Internet Assessor Relationship Specialty Start Date End Date Andre Jimenez MD [address] [place] [address] PCP - General Family Medicine 12/13/15 Internet Assessor Relationship Specialty Start Date End Date Andre Jimenez MD [address] [place] [address] PCP - General Family Medicine 12/13/15 Internet Assessor Relationship Specialty Start Date End Date Andre Jimenez MD [address] [place] [address] PCP - General Family Medicine 12/13/15 Internet Assessor Relationship Specialty Start Date End Date Andre Jimenez MD [address] [place] [address] PCP - General Family Medicine 12/13/15 Internet Assessor Relationship Specialty Start Date End Date Andre Jimenez MD [address] [place] [address] PCP - General Family Medicine 12/13/15 Internet Assessor Relationship Specialty Start Date End Date Andre Jimenez MD [address] [place] [address] PCP - General Family Medicine 12/13/15 Internet Assessor Relationship Specialty Start Date End Date Andre Jimenez MD [address] [place] [address] PCP - General Family Medicine 12/13/15 FOR RECORDS PERTAINING TO PATIENTS WHO ARE OR HAVE BEEN ENROLLED IN A CHEMICAL DEPENDENCY/SUBSTANCEABUSE PROGRAM, SOME INFORMATION MAY BE OMITTED. This clinical summary was aggregated from multiple sources. Caution should be exercised in using it in the provision of clinical care. This summary normalizes information from multiple sources, and as a consequence, information in this document may materially change the coding, format and clinical context of patient data. In addition, data may be omitted in some cases. CLINICAL DECISIONS SHOULD BE BASED ON THE PRIMARY CLINICAL RECORDS. [employer] [facility]. provides no warranty or guarantee of the accuracy or completeness of information in this document.
[2023-08-08 18:06] LABS: Alcohol, Blood (Medical)-Serum < 3.0 mg/dL
[2023-08-08] MEDS: Haloperidol 1 MG Tablet 2 MG PO (20:39)
[2023-08-08] MEDS: DULoxetine Hcl 30 MG Capsule PO (20:39)
[2023-08-08] MEDS: Lacosamide 100 MG Tablet 300 MG PO (20:40)
--- NOTE | 2023-08-08 20:41 | CM.ED ---
Addendum entered by Alma Carey 08/08/23 21:01: SCAR spoke with patient's father Daryl Winter to update him on patient's status. Father is aware of the process and that he can contact nursing and/or crisis for an update. SW provided emotional support to father. Father is appreciative of SW and ED staff with their assistance. Alma THOMAS, EMRE Original Note: Social Work Patient is referred to [facility], additional information requested and faxed to [facility]. Patient is still under review, nursing number and crisis number provided to charge nurse at [facility]. Chart and report given to crisis. Pt will need an RAULITO from accepting facility to include his father. Father is caregiver and needs involved in patient's care. Patient is straight medicaid and cannot go to a freestanding psychiatric facility. Nursing staff notified. Alma THOMAS, EMRE
[2023-08-08] MEDS: Pantoprazole Sodium 40 MG Tablet PO (20:42)
[2023-08-08 22:23] VITALS: PULSE 110; RESP 20; TEMP 36.6; O2SAT 96
--- NOTE | 2023-08-09 01:58 | ED.RN ---
SPOKE WITH AMINA WITH [facility]. [facility] DECLINED. AMINA CONTACTING [facility].
[2023-08-09 05:26] VITALS: BP 139/95; PULSE 115; RESP 18; O2SAT 97
--- NOTE | 2023-08-09 05:51 | ED.RN ---
Attempted to call report x2 with no answer from facility.
[2023-08-09 06:54] VITALS: BP 141/76; PULSE 109; RESP 20; O2SAT 100
--- NOTE | 2023-08-09 08:26 | ED.RN ---
THIS RN RECEIVES CALL FROM [facility], REQUESTING REPORT. REPORT GIVEN TO JESSEE MAN.
== END 2023-08-09 07:00 ==
PROVIDERS: Emergency Provider Emergency Medicine; PCP Family Medicine; Visit Provider Emergency Medicine
DX: F20.0 Paranoid schizophrenia (principal); F20.89 Other schizophrenia; R56.9 Unspecified convulsions; F17.210 Nicotine dependence, cigarettes, uncomplicated; F32.A Depression, unspecified; Z79.899 Other long term (current) drug therapy
CPT/HCPCS: 80048; 80307; 80320; 85025; 87631; 96372; 99285; G0480; J3486